=== PATIENT | female | born 1950 | race Caucasian/White ===

== ENCOUNTER → 2017-03-28 | Outpatient (CLI) | payer MEDICARE, OTHER ==
--- NOTE | 2017-04-01 09:52 | MM ---
Reason for exam: screening (asymptomatic). Last mammogram was performed 1 year ago. History: Patient is postmenopausal. Physical Findings: A clinical breast exam by your physician is recommended on an annual basis and results should be correlated with mammographic findings. MG 3D Screening Mammo W/Cad Bilateral CC and MLO view(s) were taken. Prior study comparison: March 27, 2016, bilateral MG 3d screening mammo w/cad. March 23, 2015, bilateral MG screening mammo w CAD. Asymmetric breast tissue in the right breast. ASSESSMENT: Benign, BI-RAD 2 RECOMMENDATION: Routine screening mammogram of both breasts in 1 year.
== END | disposition home or self-care (01) ==
LOC: RADMAMWWP 07:33
PROVIDERS: ATTEND Family Medicine
DX: Z12.31 Encounter for screening mammogram for malignant neoplasm of breast (principal)
CPT/HCPCS: 77063; G0202

== ENCOUNTER → 2017-04-04 | Outpatient (CLI) | payer MEDICARE, OTHER ==
--- NOTE | 2017-04-04 10:04 | US ---
EXAMINATION TYPE: US thyroid st tissue head/neck DATE OF EXAM: 04/04/2017 COMPARISON: 04/05/2016 and 03/23/2015. 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 follow up nodul es GLAND SIZE: Right Lobe: 4.3 x 2.3 x 2.3 cm Overall Parenchyma: heterogenous Left Lobe: 3.7 x 1.6 x 1.7 cm Overall Parenchyma: heterogeneous Isthmus Thickness: 0.4 cm NODULES RIGHT: # of nodules measured on right: 3 1. 0.6 X 0.6 x 0.5 cm hypoechoic solid nodule at the mid pole with well-defined margins. This nodu le is taller than wide and shows no intranodular vascularity. Prior size: 0.8 x 0.8 x 0.9 cm 2. 0.6 X 0.6 x 0.5 cm hypoechoic solid nodule at the lower pole with well-defined margins. This nod ule is taller than wide and shows no intranodular vascularity. Prior size: 0.6 x 0.6 x 0.7 cm 3. 0.9 X 0.9 x 0.7 cm hypoechoic solid nodule at the lower pole with irregular margins. This nodule is taller than wide and shows Peripheral vascularity. Prior size: 0.9 x 0.7 x 0.9 cm LEFT: # of nodules measured on left: 0 ISTHMUS: # of nodules measured in the isthmus: 0 Bilateral neck scanned, no evidence of lymphadenopathy. IMPRESSION: Multiple subcentimeter right-sided thyroid nodules are similar in size in comparison to exam of 2014 and likely benign. No new thyroid nodules.
== END | disposition home or self-care (01) ==
LOC: RADUSWWP 07:25
PROVIDERS: ATTEND Internal Medicine Endocrinology, Diabetes & Metabolism
DX: E04.2 Nontoxic multinodular goiter (principal)
CPT/HCPCS: 36415; 76536; 84439; 84443

== ENCOUNTER 2017-10-14 23:16 | Observation (INO) | payer MEDICARE, OTHER ==
--- NOTE | 2017-10-15 00:05 | XR ---
EXAMINATION TYPE: XR knee complete LT DATE OF EXAM: 10/14/2017 COMPARISON: NONE HISTORY: Knee pain TECHNIQUE: 3 views FINDINGS: There is narrowing of the medial joint space. There is spurring of femoral and tibial condy les. There is spurring at the patellofemoral joint. There is no sign of joint effusion. There is spur ring at the tibial tubercle. IMPRESSION: Moderate osteoarthritis. No fracture.
--- NOTE | 2017-10-15 01:11 | XR ---
EXAMINATION TYPE: XR knee complete RT DATE OF EXAM: 10/15/2017 COMPARISON: NONE HISTORY: Knee pain TECHNIQUE: 3 views FINDINGS: I see no fracture nor dislocation. There are no pathologic calcifications. There is a knee prosthesis. IMPRESSION: No fracture seen.
[2017-10-15] MEDS ORDERED: HYDROcodone/APAP 10-325MG 1 EACH TAB PO ONE (01:49)
--- NOTE | 2017-10-15 03:07 | ED ---
Fall HPI - General Chief Complaint: Fall Stated Complaint: Fall Time Seen by Provider: 10/14/17 23:18 Source: patient, EMS, RN notes reviewed, old records reviewed Mode of arrival: EMS - History of Present Illness Initial Comments: Patient is a 66-year-old female presents emergency Department with a chief complaint of left knee giving out and frequent falls. She is following approximately 10 times within the past few days. Patient states she has a right prosthetic knee. Patient states that this was performed by Dr. Parker. Patient denies any other symptoms associated with the fall. No head or neck injuries. Denies any chest pain shortness breath nausea or vomiting. - Related Data Home Medications Medication Instructions Recorded Confirmed Atorvastatin [Lipitor] 20 mg PO DAILY 10/14/17 10/14/17 Dulaglutide [Trulicity] 0.75 mg SQ WEEKLY 10/14/17 10/14/17 Lisinopril [Zestril] 2.5 mg PO DAILY 10/14/17 10/14/17 Allergies Allergy/AdvReac Type Severity Reaction Status Date / Time hydromorphone [From Dilaudid] Allergy Confusion Verified 10/14/17 23:24 Penicillins Allergy Nausea & Verified 10/14/17 23:24 Vomiting Review of Systems ROS Statement: Those systems with pertinent positive or pertinent negative responses have been documented in the HPI. ROS Other: All systems not noted in ROS Statement are negative. Past Medical History Past Medical History: Diabetes Mellitus, Hyperlipidemia, Hypertension History of Any Multi-Drug Resistant Organisms: None Reported Past Surgical History: Joint Replacement Additional Past Surgical History / Comment(s): right knee replacement Past Psychological History: No Psychological Hx Reported Smoking Status: Never smoker Past Alcohol Use History: None Reported Past Drug Use History: None Reported General Exam - General Exam Comments Initial Comments: 66-year-old female. Alert and oriented. No acute distress. Limitations: physical limitation General appearance: alert, in no apparent distress Head exam: Present: atraumatic, normocephalic, normal inspection Eye exam: Present: normal appearance, PERRL, EOMI. Absent: scleral icterus, conjunctival injection, periorbital swelling ENT exam: Present: normal exam, mucous membranes moist Neck exam: Present: normal inspection. Absent: tenderness, meningismus, lymphadenopathy Respiratory exam: Present: normal lung sounds bilaterally. Absent: respiratory distress, wheezes, rales, rhonchi, stridor Cardiovascular Exam: Present: regular rate, normal rhythm, normal heart sounds. Absent: systolic murmur, diastolic murmur, rubs, gallop, clicks GI/Abdominal exam: Present: soft, normal bowel sounds. Absent: distended, tenderness, guarding, rebound, rigid Extremities exam: Present: normal inspection, full ROM, normal capillary refill , other (Patient is some tenderness to left knee with range of motion of his normal pulses. Normal sensation distally.). Absent: tenderness, pedal edema, joint swelling, calf tenderness Back exam: Present: normal inspection Neurological exam: Present: alert, oriented X3, CN II-XII intact Course Vital Signs 10/14/17 10/15/17 10/15/17 23:19 02:00 03:24 Temperature 99.4 F 98.4 F Pulse Rate 98 89 97 Respiratory 18 20 18 Rate Blood Pressure 114/55 116/56 131/62 O2 Sat by Pulse 96 99 97 Oximetry Medical Decision Making - Medical Decision Making 66-year-old female presents with frequent falls, states that her left knee is giving out on her. I discussed with the knee x-rays were reviewed and normal. X-rays negative for any acute fractures. Patient's family said concerned they' re unable to get her home and scared of frequent falls and further injuries. He discussed this time we could admit the Patient for observation. They're quite adamant about her not returning home today. We'll check labs. - Lab Data Result diagrams: 10/15/17 03:10 10/15/17 03:10 Lab Results 10/15/17 10/15/17 Range/Units 03:10 03:10 WBC 10.0 (3.8-10.6) k/uL RBC 4.65 (3.80-5.40) m/uL Hgb 13.4 (11.4-16.0) gm/dL Hct 40.2 (34.0-46.0) % MCV 86.3 (80.0-100.0) fL MCH 28.7 (25.0-35.0) pg MCHC 33.3 (31.0-37.0) g/dL RDW 13.9 (11.5-15.5) % Plt Count 307 (150-450) k/uL Neutrophils % 72 % Lymphocytes % 22 % Monocytes % 4 % Eosinophils % 1 % Basophils % 0 % Neutrophils # 7.2 (1.3-7.7) k/uL Lymphocytes # 2.2 (1.0-4.8) k/uL Monocytes # 0.4 (0-1.0) k/uL Eosinophils # 0.1 (0-0.7) k/uL Basophils # 0.0 (0-0.2) k/uL Sodium 142 (137-145) mmol/L Potassium 4.5 (3.5-5.1) mmol/L Chloride 102 (98-107) mmol/L Carbon Dioxide 25 (22-30) mmol/L Anion Gap 15 mmol/L BUN 14 (7-17) mg/dL Creatinine 0.50 L (0.52-1.04) mg/dL Est GFR (CKD-EPI)AfAm >90 (>60 ml/min/1.73 sqM) Est GFR (CKD-EPI)NonAf >90 (>60 ml/min/1.73 sqM) Glucose 182 H (74-99) mg/dL Calcium 9.6 (8.4-10.2) mg/dL Total Bilirubin 0.4 (0.2-1.3) mg/dL AST 21 (14-36) U/L ALT 31 (9-52) U/L Alkaline Phosphatase 83 (38-126) U/L Total Protein 7.5 (6.3-8.2) g/dL Albumin 4.1 (3.5-5.0) g/dL - Radiology Data Radiology results: report reviewed Bilateral knee x-rays are completed. Notes of any fracture. Right knee has prosthesis. Disposition Clinical Impression: Frequent falls, Left knee pain Disposition: ADMITTED IP TO THIS [facility] Condition: Stable Is patient prescribed a controlled substance at d/c from ED?: No When asked, does pt state using other controlled substances?: No If prescribed controlled substance>3 days was MAPS reviewed?: No If opioid is for acute pain is fill amount 7 days or less?: No If Rx opioid, was Start Talking consent form obtained?: No Referrals: Abhi Baer MD [Primary Care Provider] - 1-2 days Time of Disposition: 03:32
[2017-10-15 03:19] LABS: Basophils % (A) 0 %; Eosinophils # (A) 0.1 k/uL (0-0.7); Eosinophils % (A) 1 %; HCT 40.2 % (34.0-46.0); HGB 13.4 gm/dL (11.4-16.0); Lymphocytes # (A) 2.2 k/uL (1.0-4.8); Lymphocytes % (A) 22 %; MCH 28.7 pg (25.0-35.0); MCHC 33.3 g/dL (31.0-37.0); MCV 86.3 fL (80.0-100.0); Mean Platelet Volume 6.4; Monocytes # (A) 0.4 k/uL (0-1.0); Monocytes % (A) 4 %; Neutrophils # (A) 7.2 k/uL (1.3-7.7); Neutrophils % (A) 72 %; Platelet Count 307 k/uL (150-450); RBC 4.65 m/uL (3.80-5.40); RDW 13.9 % (11.5-15.5)
[2017-10-15] MEDS: SODIUM CHLORIDE 0.9% 1,000 ML IV SCH ×2 (03:24→15:24)
[2017-10-15 03:28] LABS: ALT 31 U/L (9-52); AST 21 U/L (14-36); Albumin 4.1 g/dL (3.5-5.0); Alkaline Phosphatase 83 U/L (38-126); Anion Gap 15 mmol/L; Blood Urea Nitrogen 14 mg/dL (7-17); Calcium 9.6 mg/dL (8.4-10.2); Carbon Dioxide 25 mmol/L (22-30); Chloride 102 mmol/L (98-107); Glucose 182 mg/dL (74-99); Potassium 4.5 mmol/L (3.5-5.1); Sodium 142 mmol/L (137-145); Total Bilirubin 0.4 mg/dL (0.2-1.3); Total Protein 7.5 g/dL (6.3-8.2)
[2017-10-15] MEDS ORDERED: NALOXONE 0.4 MG/ML 1 ML VIAL IV PRN (03:32)
[2017-10-15] MEDS ORDERED: IBUPROFEN 400 MG TAB PO PRN (03:32)
[2017-10-15] MEDS ORDERED: oxyCODONE-APAP 5-325MG 1 EACH TAB PO PRN (03:32)
[2017-10-15] MEDS ORDERED: ACETAMINOPHEN TAB 325 MG TAB PO PRN (03:32)
[2017-10-15] MEDS ORDERED: ONDANSETRON 4 MG/2 ML VIAL IVP PRN (03:32)
[2017-10-15] MEDS ORDERED: Acetaminophen-Codeine 300-30mg TAB PO PRN (03:32)
[2017-10-15 03:52] LABS: Appearance,Urine Cloudy (Clear); Bacteria,Urine Many /hpf; Bilirubin,Urine Negative (Negative); Blood,Urine Small (Negative); Color,Urine Yellow; Glucose,Urine (UA) Negative (Negative); Ketones,Urine Negative (Negative); Leukocyte Esterase,Urine Large (Negative); Mucus,Urine Rare /hpf; Nitrite,Urine Positive (Negative); PH, Urine 5.5 (5.0-8.0); Protein,Urine Negative (Negative); RBC,Urine 32 /hpf (0-5); Specific Gravity,Urine 1.015 (1.001-1.035); Squamous Epithelial Cell,Urine 2 /hpf (0-4); Urobilinogen,Urine <2.0 mg/dL (<2.0); WBC,Urine 20 /hpf (0-5)
[2017-10-15] MEDS ORDERED: LEVOFLOXACIN 750MG-D5W PMX 750 MG in DEXTROSE/WATER 1 150ML.BAG IVPB STA (04:18)
[2017-10-15 07:28] LABS: Glucose,Whole Blood 167 mg/dL (75-99)
[2017-10-15] MEDS: LISINOPRIL 2.5 MG TAB PO SCH (09:12)
[2017-10-15] MEDS: PANTOPRAZOLE 40 MG/10 ML VIAL IV SCH (09:12)
[2017-10-15] MEDS: ATORVASTATIN 20 MG TAB PO SCH (09:12)
[2017-10-15 11:40] LABS: Glucose,Whole Blood 150 mg/dL (75-99)
--- NOTE | 2017-10-15 11:59 | P.CNOR ---
History of Present Illness - [facility] Consult date: 10/15/17 Consult reason: joint pain History of present illness: Patient is a 66-year-old female who was admitted to [facility] yesterday. Patient reported to the hospital due to frequent falls involving the left knee. According to the patient's family, patient is fallen 10 times in the last few days. Patient does live at home with her . Patient's has had many strokes and requires a lot of assistance. Patient utilizes a walker usually for ambulation, she hasn't fallen with this. Patient is a history of a previous right total knee arthroplasty done back in 2006 or 2007, she ended up having a revision done in 2011. Patient has had significant adhesions and stiffness with that right knee. Dr. Parker was the operating surgeon. She has not seen Dr. Keith Estes in 2011. With the recent falls, she's noted the left leg giving out, which she contributes more to the falls. She's had no acute trauma to the right knee at this time. She denies any bilateral upper extremity pain, new onset cervical, thoracic or lumbar pain. She denies any paresthesias of the bilateral lower extremities. 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 History of Any Multi-Drug Resistant Organisms: None Reported Past Surgical History: Bladder Surgery, Cholecystectomy, Hysterectomy, Joint Replacement, Orthopedic Surgery, Tubal Ligation Additional Past Surgical History / Comment(s): R knee arthroscopy, R knee manipulation, total right knee replacement x 2, bilateral carpal tunnel releases , colonoscopy, bladder suspension, I&D R lower abdomin abscess. Past Anesthesia/Blood Transfusion Reactions: No Reported Reaction Smoking Status: Never smoker - Past Family History Mother Family Medical History: No Reported History Father Family Medical History: Cancer, Diabetes Mellitus Additional Family Medical History / Comment(s): Father had thyroid cancer. Medications and Allergies Home Medications Medication Instructions Recorded Confirmed Type Atorvastatin [Lipitor] 20 mg PO HS 10/14/17 10/15/17 History Lisinopril [Zestril] 2.5 mg PO HS 10/14/17 10/15/17 History Dulaglutide [Trulicity] 1.5 mg SQ WE 10/15/17 10/15/17 History Insulin Degludec [Tresiba 40 unit SQ HS 10/15/17 10/15/17 History Flextouch U-200] Allergies Allergy/AdvReac Type Severity Reaction Status Date / Time hydromorphone [From Dilaudid] Allergy Confusion Verified 10/15/17 09:00 Penicillins Allergy Nausea & Verified 10/15/17 09:00 Vomiting Physical Examination Right lower extremity: Obvious previous incision over the anterior aspect of the knee, no open lesions or sores No obvious erythema or soft tissue swelling present Range of motion is from -15 to about 20, this is passively. Actively the motion is worse Calf is soft, no tenderness with palpation Plantar flexion, dorsiflexion, EHL, FHL are intact Sensory exam to light touch throughout the extremities intact, dorsal pedis pulses 2+ Logroll maneuver the hip reproduces no discomfort Left lower extremity: No obvious open lesions or sores present, no significant erythema or soft tissue swelling Active range of motion is from about -5 to 60 of flexion, passively I can flex to about 90 Calf is soft, no tenderness with palpation Plantar flexion, dorsiflexion, EHL, FHL are intact Sensory exam to light touch throughout the extremities intact, dorsal pedis pulses 2+ Logroll maneuver of the hip reproduces no discomfort Results - Labs Labs: Abnormal Lab Results - Last 24 Hours (Table) 10/15/17 10/15/17 10/15/17 Range/Units 03:10 03:34 07:24 Creatinine 0.50 L (0.52-1.04) mg/dL Glucose 182 H (74-99) mg/dL POC Glucose (mg/dL) 167 H (75-99) mg/dL Urine Appearance Cloudy H (Clear) Urine Blood Small H (Negative) Urine Nitrite Positive H (Negative) Ur Leukocyte Esterase Large H (Negative) Urine RBC 32 H (0-5) /hpf Urine WBC 20 H (0-5) /hpf Urine Bacteria Many H (None) /hpf Urine Mucus Rare H (None) /hpf 05/29/18 Range/Units 11:38 Creatinine (0.52-1.04) mg/dL Glucose (74-99) mg/dL POC Glucose (mg/dL) 150 H (75-99) mg/dL Urine Appearance (Clear) Urine Blood (Negative) Urine Nitrite (Negative) Ur Leukocyte Esterase (Negative) Urine RBC (0-5) /hpf Urine WBC (0-5) /hpf Urine Bacteria (None) /hpf Urine Mucus (None) /hpf Microbiology - Last 24 Hours (Table) 10/15/17 03:34 Urine Culture - Preliminary Urine,Voided H & H 10/15/17 Range/Units 03:10 Hgb 13.4 (11.4-16.0) gm/dL Hct 40.2 (34.0-46.0) % Result Diagrams: 10/15/17 03:10 10/15/17 03:10 - Diagnostic results Knee x-ray: report reviewed, image reviewed Assessment and Plan Plan: Imaging: Multiple views of the bilateral knees were obtained. Images of the right knee reveal a stable revision right total knee arthroplasty. No obvious lucencies or other signs of loosening present. Images of the left knee demonstrate severe osteoarthritis, mainly with joint space narrowing of the medial aspect, also evidence of osteophytes and subchondral sclerosis. No acute fractures or dislocations present Assessment: Left knee pain Severe left knee osteoarthritis Stable revision right total knee arthroplasty with significant stiffness History of recent falls Other medical comorbidities Plan: I was able to discuss the case including physical exam findings and imaging studies with my attending Dr. Parker. We recommend no surgical intervention at this time. With the poor results after the right knee replacement, I do not think a left knee replacement would be of any benefit at this time. Patient's general activity level has diminished, and there is associated weakness of the bilateral extremities and upper extremities. Recommend PT/OT evaluation. Patient would benefit from likely stay at rehab to strengthen the bilateral upper extremities in the bilateral lower extremities Consider possible permanent residence in an assisted living home patient's symptoms don't improve Medical recommendations We will be available for any further questions regarding this patient, patient may follow-up in the outpatient setting for any further treatment options and discussion Time with Patient: Less than 30
[2017-10-15 17:07] LABS: Glucose,Whole Blood 170 mg/dL (75-99)
[2017-10-15 20:04] LABS: Glucose,Whole Blood 157 mg/dL (75-99)
[2017-10-15] MEDS: TRESIBA SQ SCH (20:08)
--- NOTE | 2017-10-15 22:01 | P.HPIM ---
History of Present Illness H&P Date: 10/15/17 Chief Complaint: Left knee pain with multiple falls. This is a continuing progress note/history and physical on a 66-year-old female essentially admitted for multiple falls. She hasast several weeks. She has had right knee replacement in the past and states that her left knee has been giving away. Orthopedics has been counseled that as has physical therapy. No numbness or tingling. No presyncope or syncopal episodes actually stated. I suspect this is more functional in nature. Review of Systems Constitutional: Denies chills, Denies fever Eyes: denies blurred vision, denies pain Ears, nose, mouth and throat: Denies headache, Denies sore throat Cardiovascular: Denies chest pain Respiratory: Denies cough Gastrointestinal: Denies abdominal pain, Denies diarrhea, Denies nausea, Denies vomiting Musculoskeletal: left: knee pain, knee stiffness Integumentary: Denies pruritus, Denies rash Past Medical History Past Medical History: Diabetes Mellitus, Hyperlipidemia, Hypertension, Osteoarthritis (OA), Skin Disorder, Vascular Disorder Additional Past Medical History / Comment(s): Diabetes-Trulicity SQ weekly, numbness/tingling bilateral legs, bilateral legs vascular disease, peripheral edema bilateral legs-especially R side, arthritis L knee, occassional back pain , 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 History of Any Multi-Drug Resistant Organisms: None Reported Past Surgical History: Bladder Surgery, Cholecystectomy, Hysterectomy, Joint Replacement, Orthopedic Surgery, Tubal Ligation Additional Past Surgical History / Comment(s): R knee arthroscopy, R knee manipulation, total right knee replacement x 2, bilateral carpal tunnel releases , colonoscopy, bladder suspension, I&D R lower abdomin abscess. Past Anesthesia/Blood Transfusion Reactions: No Reported Reaction Smoking Status: Never smoker - Past Family History Mother Family Medical History: No Reported History Father Family Medical History: Cancer, Diabetes Mellitus Additional Family Medical History / Comment(s): Father had thyroid cancer. Medications and Allergies Home Medications Medication Instructions Recorded Confirmed Type Atorvastatin [Lipitor] 20 mg PO HS 10/14/17 10/15/17 History Lisinopril [Zestril] 2.5 mg PO HS 10/14/17 10/15/17 History Dulaglutide [Trulicity] 1.5 mg SQ WE 10/15/17 10/15/17 History Insulin Degludec [Tresiba 40 unit SQ HS 10/15/17 10/15/17 History Flextouch U-200] Allergies Allergy/AdvReac Type Severity Reaction Status Date / Time hydromorphone [From Dilaudid] Allergy Confusion Verified 10/15/17 09:00 Penicillins Allergy Nausea & Verified 10/15/17 09:00 Vomiting Physical Exam Vitals: Vital Signs Temp Pulse Pulse Resp BP BP Pulse Ox 10/15/17 16:00 16 10/15/17 15:28 97.5 F L 85 16 144/70 96 10/15/17 09:52 16 10/15/17 06:40 87 18 139/60 10/15/17 05:35 86 18 138/67 97 10/15/17 04:42 91 18 120/63 98 10/15/17 03:24 98.4 F 97 18 131/62 97 10/15/17 02:00 89 20 116/56 99 10/14/17 23:19 99.4 F 98 18 114/55 96 Intake and Output 10/15/17 10/15/17 10/15/17 06:59 14:59 22:59 Intake Total 850 Output Total 1300 Balance -450 Intake: Intake, IV Titration 850 Amount Levofloxacin 750Mg-D5w 150 Pmx 750 mg In Dextrose/ Water 1 150ml.bag @ 100 mls/hr IVPB ONCE STA Rx#: [id number] Sodium Chloride 0.9% 1, 700 000 ml @ 100 mls/hr IV . Q10H [facility] Rx#:[id number] Output: Urine 1300 Other: Voiding Method Bedpan Bedpan Weight 81.647 kg - Constitutional General appearance: no acute distress - EENT Eyes: EOMI - Neck Neck: no lymphadenopathy - Respiratory Respiratory: bilateral: CTA - Cardiovascular Rhythm: regular Heart sounds: normal: S1, S2 Abnormal Heart Sounds: no S3 Gallop - Gastrointestinal General gastrointestinal: soft, no tenderness - Integumentary Integumentary: no cellulitis - Neurologic No significant focal deficits noted. Neurologic: CNII-XII intact - Musculoskeletal Musculoskeletal: no gait normal - Psychiatric Psychiatric: A&O x's 3, appropriate affect, intact judgment & insight Results CBC & Chem 7: 10/15/17 03:10 10/15/17 03:10 Labs: Abnormal Lab Results - Last 24 Hours (Table) 10/15/17 10/15/17 10/15/17 Range/Units 03:10 03:34 07:24 Creatinine 0.50 L (0.52-1.04) mg/dL Glucose 182 H (74-99) mg/dL POC Glucose (mg/dL) 167 H (75-99) mg/dL Urine Appearance Cloudy H (Clear) Urine Blood Small H (Negative) Urine Nitrite Positive H (Negative) Ur Leukocyte Esterase Large H (Negative) Urine RBC 32 H (0-5) /hpf Urine WBC 20 H (0-5) /hpf Urine Bacteria Many H (None) /hpf Urine Mucus Rare H (None) /hpf 10/15/17 10/15/17 10/15/17 Range/Units 11:38 17:06 20:01 Creatinine (0.52-1.04) mg/dL Glucose (74-99) mg/dL POC Glucose (mg/dL) 150 H 170 H 157 H (75-99) mg/dL Urine Appearance (Clear) Urine Blood (Negative) Urine Nitrite (Negative) Ur Leukocyte Esterase (Negative) Urine RBC (0-5) /hpf Urine WBC (0-5) /hpf Urine Bacteria (None) /hpf Urine Mucus (None) /hpf Microbiology - Last 24 Hours (Table) 10/15/17 03:34 Urine Culture - Preliminary Urine,Voided Thrombosis Risk Factor Assmnt - Choose All That Apply Any of the Below Risk Factors Present?: Yes Each Factor Represents 1 point: Obesity (BMI >25), Swollen legs (current) Other Risk Factors: Yes Each Risk Factor Represents 2 Points: Age 61-74 years Other congenital or acquired thrombophilia - If yes, enter type in comment: No Thrombosis Risk Factor Assessment Total Risk Factor Score: 4 Thrombosis Risk Factor Assessment Level: Moderate Risk Assessment and Plan (1) Primary osteoarthritis of left knee Current Visit: Yes Status: Acute Code(s): M17.12 - UNILATERAL PRIMARY OSTEOARTHRITIS, LEFT KNEE SNOMED Code(s): 146751127436052 (2) Diabetes Current Visit: Yes Status: Acute Code(s): E11.9 - TYPE 2 DIABETES MELLITUS WITHOUT COMPLICATIONS SNOMED Code(s): 91302692 (3) Hypertension Current Visit: Yes Status: Acute Code(s): I10 - ESSENTIAL (PRIMARY) HYPERTENSION SNOMED Code(s): 16105573 (4) Hyperlipidemia Current Visit: Yes Status: Acute Code(s): E78.5 - HYPERLIPIDEMIA, UNSPECIFIED SNOMED Code(s): 53812662 (5) Frequent falls Current Visit: Yes Status: Acute Code(s): R29.6 - REPEATED FALLS SNOMED Code(s): 189300587 Plan: We will ask orthopedics to visit with therapy to evaluate the patient. Question placement element with rehab issue. Otherwise, consider physical medicine rehab consultation. Reconcile medications. Treat for UTI. We will continue to follow obviously with this hospitalization. Time with Patient: Greater than 30
[2017-10-16] MEDS: SODIUM CHLORIDE 0.9% 1,000 ML IV SCH ×3 (00:47→21:03)
[2017-10-16] MEDS: LEVOFLOXACIN 750 MG TAB PO SCH (04:52)
[2017-10-16 07:00] LABS: Glucose,Whole Blood 163 mg/dL (75-99)
[2017-10-16] MEDS: LISINOPRIL 2.5 MG TAB PO SCH (07:23)
[2017-10-16] MEDS: ATORVASTATIN 20 MG TAB PO SCH (07:23)
[2017-10-16] MEDS: PANTOPRAZOLE 40 MG/10 ML VIAL IV SCH (07:23)
[2017-10-16] MEDS ORDERED: NON-FORMULARY DRUG (Dulaglutide [Trulicity] 1.5 MG) SQ SCH (09:00)
--- NOTE | 2017-10-16 10:14 | P.CONS ---
History of Present Illness - Chief Complaint Walking difficulty, frequent falls - History of Present Illness I had the opportunity to see patient for inpatient consultation with regard to walking difficulty and frequent falls. She was admitted to [facility] October 15 with same history. Apparently described pain in right knee although with me she describes pain in right foot or ankle. Seen by Dr. Quiroz who reviewed x-rays of the right knee and left knee. Moderate arthritic changes noted left knee only. Describes previous right knee replacement. PT reports maximal assistance for functional mobility. Previous functional history as elicited from patient: 66-year-old right-handed white female who is lives and 2 floor home with . Both are retired. does the cooking, they share the laundry. Patient independent with driving, standing shower and gait with 4 wheeled walker. Doesn 't smoke or drink and never did. PMD Dr. Baer. Family history father with diabetes. Review of Systems Review of systems: ENT: Denies sneezes or discharge. Eyes: Denies discharge or photophobia. Cardiac: Denies chest pain or palpitation. Pulmonary: Denies cough or shortness of breath. Breast: Denies discharge or lumps. Gastrointestinal: Denies nausea, emesis, constipation, diarrhea. Genitourinary: Denies discharge or frequency. Musculoskeletal: Describes discomfort and right foot or ankle only. Neurologic: Denies motor or sensory change. Does describe frequent falls which she attributes to her diabetes. Endocrine: Denies shakes or sweats. Oncology: Denies cancers. Dermatologic: Denies rash, itching, pruritus. ALLERGY/immunology: Denies sneezes, rashes. 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 History of Any Multi-Drug Resistant Organisms: None Reported Past Surgical History: Bladder Surgery, Cholecystectomy, Hysterectomy, Joint Replacement, Orthopedic Surgery, Tubal Ligation Additional Past Surgical History / Comment(s): R knee arthroscopy, R knee manipulation, total right knee replacement x 2, bilateral carpal tunnel releases , colonoscopy, bladder suspension, I&D R lower abdomin abscess. Past Anesthesia/Blood Transfusion Reactions: No Reported Reaction Smoking Status: Never smoker - Past Family History Mother Family Medical History: No Reported History Father Family Medical History: Cancer, Diabetes Mellitus Additional Family Medical History / Comment(s): Father had thyroid cancer. Medications and Allergies Home Medications Medication Instructions Recorded Confirmed Type Atorvastatin [Lipitor] 20 mg PO HS 10/14/17 10/15/17 History Lisinopril [Zestril] 2.5 mg PO HS 10/14/17 10/15/17 History Dulaglutide [Trulicity] 1.5 mg SQ WE 10/15/17 10/15/17 History Insulin Degludec [Tresiba 40 unit SQ HS 10/15/17 10/15/17 History Flextouch U-200] Allergies Allergy/AdvReac Type Severity Reaction Status Date / Time hydromorphone [From Dilaudid] Allergy Confusion Verified 10/15/17 09:00 Penicillins Allergy Nausea & Verified 10/15/17 09:00 Vomiting Physical Exam Vitals: Vital Signs Temp Pulse Resp BP Pulse Ox 10/16/17 05:15 98.1 F 81 16 122/59 94 L 10/15/17 21:20 97.6 F 75 16 114/54 94 L 10/15/17 16:00 16 10/15/17 15:28 97.5 F L 85 16 144/70 96 Intake and Output 10/15/17 10/16/17 10/16/17 22:59 06:59 14:59 Intake Total 350 800 Output Total 800 Balance 350 0 Intake: Intake, IV Titration 350 800 Amount Sodium Chloride 0.9% 1, 350 800 000 ml @ 100 mls/hr IV . Q10H [facility] Rx#:[id number] Output: Urine 800 Other: Voiding Method Bedpan Skin: Good color, texture, turgor. General: Overweight build and comfortable appearance. Head: Normocephalic, atraumatic. Eyes: Symmetric. Pupils equal round. Ears: Symmetric. Hearing within normal limits. Mouth: Clear. Neck: Supple. Carotid without bruit. Cardiac: Regular rate and rhythm. Lungs: Clear anteriorly and posteriorly. Abdomen: Soft active nontender. Overweight. Extremities: Normal tone. Neurological: Mental status: Alert, cooperative, pleasant. Cranial nerves: Symmetric facial tone and trapezius. Motor: Can actively elevates all 4 limbs. Sensation: Intact throughout. DTRs: Symmetric and equal throughout. Mobility: Moderate assistance for bed mobility and sitting. Results CBC & Chem 7: 10/15/17 03:10 10/15/17 03:10 Labs: Abnormal Lab Results - Last 24 Hours (Table) 10/15/17 10/15/17 10/15/17 Range/Units 11:38 17:06 20:01 POC Glucose (mg/dL) 150 H 170 H 157 H (75-99) mg/dL 10/16/17 Range/Units 06:54 POC Glucose (mg/dL) 163 H (75-99) mg/dL Microbiology - Last 24 Hours (Table) 10/15/17 04:29 Blood Culture - Preliminary Blood No Growth after 24 hours 10/15/17 03:34 Urine Culture - Preliminary Urine,Voided Assessment and Plan (1) Frequent falls Current Visit: Yes Status: Acute Code(s): R29.6 - REPEATED FALLS SNOMED Code(s): 560677796 Plan: Impression: 1. Walking difficulty with frequent falls. 2. Polyarthritis involving multiple joints including knees and history of right knee replacement. 3. Hypertension. 4. Dyslipidemia. 5. Diabetes associated polyneuropathy. 6. Peripheral vascular disease. Comments and plan: PT ongoing in a very added OT. Discussed possible need for extended therapy such as rehab unit. Patient seems agreeable if necessary.
[2017-10-16 11:06] LABS: Glucose,Whole Blood 206 mg/dL (75-99)
[2017-10-16 17:12] LABS: Glucose,Whole Blood 155 mg/dL (75-99)
[2017-10-16 20:23] LABS: Glucose,Whole Blood 164 mg/dL (75-99)
[2017-10-16] MEDS: TRESIBA SQ SCH (21:03)
[2017-10-17] MEDS ORDERED: LEVOFLOXACIN 750 MG TAB ONE (05:00)
[2017-10-17] MEDS: LEVOFLOXACIN 750 MG TAB PO SCH (05:57)
[2017-10-17] MEDS: SODIUM CHLORIDE 0.9% 1,000 ML IV SCH ×2 (06:30→15:53)
[2017-10-17 07:22] LABS: Glucose,Whole Blood 135 mg/dL (75-99)
--- NOTE | 2017-10-17 08:25 | P.DS ---
Providers Date of admission: 10/15/17 03:32 Attending physician: Abhi Baer Consults: 10/15/17 07:26 Consult Physician Routine Consulting Provider: Darrin Parker Consult Reason/Comments: Bilateral knee pain, frequent falls Do you want consulting provider notified?: Yes 10/16/17 08:45 Consult Physician Urgent Consulting Provider: Arnav Marr Consult Reason/Comments: [facility] Do you want consulting provider notified?: Yes Primary care physician: Abhi Baer - Discharge Diagnosis(es) (1) Primary osteoarthritis of left knee Current Visit: Yes Status: Acute (2) Diabetes Current Visit: Yes Status: Acute (3) Hypertension Current Visit: Yes Status: Acute (4) Hyperlipidemia Current Visit: Yes Status: Acute (5) Frequent falls Current Visit: Yes Status: Acute Hospital Course: This is a discharge summary 66-year-old white female essentially admitted for multiple falls and instability of the knee. She's had knee replacement on the right but states the left knee has been giving out inappropriately. The patient states that she is agreeable to transfer to rehabilitation. Dr. Perez was consulted as supposedly agreed to take the patient to inpatient rehab. The patient will be transferred one bed available. Reconcile home medications and we will continue to follow at [facility]. Patient Condition at Discharge: Stable Plan - Discharge Summary Discharge Rx Participant: No New Discharge Prescriptions: New Levofloxacin [Levaquin] 750 mg PO Q24H #5 tab oxyCODONE-APAP 5-325MG [Percocet 5-325 mg] 1 each PO Q4HR PRN #60 tab PRN Reason: Severe Pain Pantoprazole [Protonix] 40 mg PO AC-BRKFST #30 tablet. Continue Lisinopril [Zestril] 2.5 mg PO HS Atorvastatin [Lipitor] 20 mg PO HS Dulaglutide [Trulicity] 1.5 mg SQ WE Insulin Degludec [Tresiba Flextouch U-200] 40 unit SQ HS Discharge Medication List Atorvastatin [Lipitor] 20 mg PO HS 10/14/17 [History] Lisinopril [Zestril] 2.5 mg PO HS 10/14/17 [History] Dulaglutide [Trulicity] 1.5 mg SQ WE 10/15/17 [History] Insulin Degludec [Tresiba Flextouch U-200] 40 unit SQ HS 10/15/17 [History] Levofloxacin [Levaquin] 750 mg PO Q24H #5 tab 10/17/17 [Rx] Pantoprazole [Protonix] 40 mg PO AC-BRKFST #30 tablet.dr 10/17/17 [Rx] oxyCODONE-APAP 5-325MG [Percocet 5-325 mg] 1 each PO Q4HR PRN #60 tab 10/17/17 [ Rx] Follow up Appointment(s)/Referral(s): Abhi Baer MD [Primary Care Provider] - 1-2 days Discharge Disposition: TRANSFER TO SNF/ECF
[2017-10-17] MEDS: PANTOPRAZOLE 40 MG TABLET PO SCH (08:41)
[2017-10-17] MEDS: LISINOPRIL 2.5 MG TAB PO SCH (08:41)
[2017-10-17] MEDS: ATORVASTATIN 20 MG TAB PO SCH (08:41)
[2017-10-17 10:56] LABS: Glucose,Whole Blood 146 mg/dL (75-99)
[2017-10-17 16:47] LABS: Glucose,Whole Blood 181 mg/dL (75-99)
[2017-10-17] MEDS: KETOROLAC 30 MG/ML 1 ML VIAL IVP PRN (17:48)
[2017-10-17] MEDS: TRESIBA SQ SCH (20:24)
[2017-10-17 20:25] LABS: Glucose,Whole Blood 153 mg/dL (75-99)
[2017-10-17 21:53] VITALS: RESP 16
[2017-10-18] MEDS: SODIUM CHLORIDE 0.9% 1,000 ML IV SCH ×2 (01:38→08:11)
[2017-10-18] MEDS: LEVOFLOXACIN 750 MG TAB PO SCH (04:38)
[2017-10-18] MEDS: KETOROLAC 30 MG/ML 1 ML VIAL IVP PRN ×2 (04:44→13:59)
[2017-10-18 05:59] VITALS: BP 138/75; PULSE 89; TEMP 98.2
[2017-10-18 07:03] LABS: Glucose,Whole Blood 148 mg/dL (75-99)
[2017-10-18] MEDS: PANTOPRAZOLE 40 MG TABLET PO SCH (08:06)
[2017-10-18] MEDS: ATORVASTATIN 20 MG TAB PO SCH (08:06)
[2017-10-18] MEDS: LISINOPRIL 2.5 MG TAB PO SCH (08:06)
--- NOTE | 2017-10-18 08:18 | P.PN ---
Objective - Vital Signs Vital signs: Vital Signs Temp 98.2 F 10/18/17 05:00 Pulse 89 10/18/17 05:00 Resp 16 10/18/17 05:00 BP 138/75 10/18/17 05:00 Pulse Ox 97 10/18/17 05:00 Intake & Output 10/17/17 10/18/17 10/18/17 18:59 06:59 18:59 Intake Total 240 1100 Output Total 2700 700 Balance -2460 400 Weight 81.647 kg Intake: Intake, IV Titration 1100 Amount Sodium Chloride 0.9% 1, 1100 000 ml @ 100 mls/hr IV . Q10H [facility] Rx#:[id number] Oral 240 Output: Urine 2700 700 Other: Voiding Method Bedpan - Labs CBC & Chem 7: 10/15/17 03:10 10/15/17 03:10 Labs: Abnormal Lab Results - Last 24 Hours (Table) 10/17/17 10/17/17 10/17/17 Range/Units 10:54 16:46 20:14 POC Glucose (mg/dL) 146 H 181 H 153 H (75-99) mg/dL 10/18/17 Range/Units 07:01 POC Glucose (mg/dL) 148 H (75-99) mg/dL Microbiology - Last 24 Hours (Table) 10/15/17 04:29 Blood Culture - Preliminary Blood No Growth after 72 hours 10/15/17 03:34 Urine Culture - Final Urine,Voided Escherichia coli Assessment and Plan (1) Primary osteoarthritis of left knee Current Visit: Yes Status: Acute Code(s): M17.12 - UNILATERAL PRIMARY OSTEOARTHRITIS, LEFT KNEE SNOMED Code(s): 811569114718833 (2) Diabetes Current Visit: Yes Status: Acute Code(s): E11.9 - TYPE 2 DIABETES MELLITUS WITHOUT COMPLICATIONS SNOMED Code(s): 05420999 (3) Hypertension Current Visit: Yes Status: Acute Code(s): I10 - ESSENTIAL (PRIMARY) HYPERTENSION SNOMED Code(s): 67109880 (4) Hyperlipidemia Current Visit: Yes Status: Acute Code(s): E78.5 - HYPERLIPIDEMIA, UNSPECIFIED SNOMED Code(s): 47056723 (5) Frequent falls Current Visit: Yes Status: Acute Code(s): R29.6 - REPEATED FALLS SNOMED Code(s): 220197738 Plan: Due to bed availability, the patient was discharged later today. Refer to discharge summary from 10/17/2017 Time with Patient: Less than 30
[2017-10-18 11:34] LABS: Glucose,Whole Blood 144 mg/dL (75-99)
== END 2017-10-18 14:10 ==
LOC: EC 23:16 → 5MS5E 10-15 03:32
PROVIDERS: ADMIT Family Medicine; ATTEND Family Medicine
DX: M17.12 Unilateral primary osteoarthritis, left knee (principal); R29.6 Repeated falls; E11.42 Type 2 diabetes mellitus with diabetic polyneuropathy; E11.51 Type 2 diabetes mellitus with diabetic peripheral angiopathy without gangrene; Z96.651 Presence of right artificial knee joint; E78.5 Hyperlipidemia, unspecified; I10 Essential (primary) hypertension; N39.0 Urinary tract infection, site not specified; R20.0 Anesthesia of skin; R20.2 Paresthesia of skin; M79.89 Other specified soft tissue disorders; R60.0 Localized edema; M25.369 Other instability, unspecified knee; M79.671 Pain in right foot; L92.0 Granuloma annulare; J30.9 Allergic rhinitis, unspecified; E66.9 Obesity, unspecified; M25.762 Osteophyte, left knee; Z68.31 Body mass index [BMI] 31.0-31.9, adult; Z87.09 Personal history of other diseases of the respiratory system; Z88.5 Allergy status to narcotic agent; Z88.0 Allergy status to penicillin; Z86.19 Personal history of other infectious and parasitic diseases; Z90.49 Acquired absence of other specified parts of digestive tract; Z80.8 Family history of malignant neoplasm of other organs or systems; Z79.899 Other long term (current) drug therapy; Z79.4 Long term (current) use of insulin
CPT/HCPCS: 96365 ×2; 96366 ×3; 96361 ×2; 99285; 96376 ×2; 96375 ×2; 36415; 97116; 97530; 97162; 97535 ×2; 97166; 80053; 85025; 81001; 87040; 87086; 87077; 87186; 73562 ×2; G0378 ×4; J1885 ×2; J1956; C9113 ×2

== ENCOUNTER 2017-11-20 12:50 | Inpatient (IN) | payer MEDICARE, OTHER ==
[2017-11-20] MEDS ORDERED: SODIUM CHLORIDE 0.9% 1,000 ML IV STA (13:16)
[2017-11-20 13:38] LABS: Basophils % (A) 0 %; Eosinophils # (A) 0.1 k/uL (0-0.7); Eosinophils % (A) 1 %; HCT 40.1 % (34.0-46.0); HGB 13.5 gm/dL (11.4-16.0); Lymphocytes # (A) 1.4 k/uL (1.0-4.8); Lymphocytes % (A) 14 %; MCH 28.7 pg (25.0-35.0); MCHC 33.6 g/dL (31.0-37.0); MCV 85.4 fL (80.0-100.0); Mean Platelet Volume 6.2; Monocytes # (A) 0.4 k/uL (0-1.0); Monocytes % (A) 4 %; Neutrophils # (A) 8.1 k/uL (1.3-7.7); Neutrophils % (A) 81 %; Platelet Count 241 k/uL (150-450); RBC 4.69 m/uL (3.80-5.40); RDW 13.1 % (11.5-15.5)
[2017-11-20 13:46] LABS: ALT 39 U/L (9-52); AST 19 U/L (14-36); Alkaline Phosphatase 57 U/L (38-126); Anion Gap 10 mmol/L; Blood Urea Nitrogen 22 mg/dL (7-17); Calcium 8.5 mg/dL (8.4-10.2); Carbon Dioxide 32 mmol/L (22-30); Chloride 99 mmol/L (98-107); Glucose 114 mg/dL (74-99); Sodium 141 mmol/L (137-145); Total Bilirubin 0.4 mg/dL (0.2-1.3); Total Protein 5.4 g/dL (6.3-8.2)
[2017-11-20 13:57] LABS: Creatine Kinase <20 U/L (30-135)
[2017-11-20 14:01] LABS: Partial Thromboplastin Time 18.6 sec (22.0-30.0)
[2017-11-20 14:10] LABS: Creatine Kinase MB <0.2 ng/mL (0.0-2.4); Troponin I <0.012 ng/mL (0.000-0.034)
--- NOTE | 2017-11-20 14:10 | CT ---
EXAMINATION TYPE: CT brain wo con for TPA DATE OF EXAM: 11/20/2017 COMPARISON: Prior CT dated 2008. HISTORY: Lt sided weakness CT DLP: 1090.4 mGycm Automated exposure control for dose reduction was used. Helical imaging through the brain. FINDINGS: White matter low-attenuation is present in the deep white matter greater on the right than on the lef t, interval finding. There is no mass effect. No hemorrhage or hydrocephalus. Calvarium is intact. Pa ranasal sinuses IMPRESSION: FINDINGS SUGGEST PREVIOUS CEREBROVASCULAR ACCIDENT, CHRONIC SMALL VESSEL ISCHEMIC CHANGE. NO ACUTE AB NORMALITY SUSPECTED.
--- NOTE | 2017-11-20 14:23 | XR ---
EXAMINATION TYPE: XR chest 2V DATE OF EXAM: 11/20/2017 COMPARISON: Prior chest 04/09/2012 HISTORY: Altered mental status TECHNIQUE: Frontal and lateral views of the chest are obtained. FINDINGS: The heart is enlarged. Interstitium is increased. Perihilar increased density is noted. No pneumothorax or pleural effusion. There are overlying cardiac leads. IMPRESSION: Correlate to exclude pulmonary venous hypertension and interstitial edema. Exam may be e xpiratory and is rotated, follow-up as indicated.
--- NOTE | 2017-11-20 14:51 | CT ---
EXAMINATION TYPE: CT angio head neck DATE OF EXAM: 11/20/2017 HISTORY: Lt side weakness COMPARISON: CT brain same date CT DLP: 344.1 mGycm. Automated Exposure Control for Dose Reduction was Utilized. TECHNIQUE: CTA scan of the neck is performed with IV Contrast, patient injected with 65 mL of Isovue 370, axial images are obtained, coronal and sagittal reformatted images are reviewed. Three-D recons tructed images are created on an independent workstation and reviewed. FINDINGS: Carotid/Vascular Structures: The neck shows patent thoracic aorta, left and right common carotid alon ry, innominate artery, left and right subclavian arteries are patent, left and right vertebral arteri es are patent and codominant. There is no evident aneurysm, proximal internal carotid artery stenosis , or dissection present. Cerebral vasculature is patent. No evident aneurysm or dissection. No filling defect to suggest embol us. Other: Lung apices show no mass. Suspect some mosaic perfusion. IMPRESSION: Patent vasculature. Additional findings above, follow-up as indicated.
--- NOTE | 2017-11-20 15:50 | ED ---
Neuro HPI - General Chief Complaint: Neuro Symptoms/Deficit Stated Complaint: Left side weakness Time Seen by Provider: 11/20/17 12:52 Source: RN/MD, EMS Mode of arrival: EMS Limitations: no limitations - History of Present Illness Is the patient presenting with stroke symptoms?: No Initial Comments: Niki stated they want to follow up with the Dr. Chew patient has ongoing weakness of the left arm and the left leg we tried to get hold of her rehab facility family members and her in charge nurse at the rehab facility the symptoms are ongoing for unknown duration, her daughter and numb said that she has a left-sided upper extremity and lower extremity weakness ongoing off and on for a few weeks also has a left eye [facility] Dr. Chew and Dr. Contreras has been the neurologist. She denies any headaches but has loss of vision on the left eye and this pain ongoing for a few days patient herself needed the rehab facility needed the family knows exact onset time and now left-sided weakness of the upper and lower extremities ongoing is 1 no chest pain or shortness of breath no abdominal pain no frequency urgency dysuria - Related Data Home Medications: Home Medications Medication Instructions Recorded Confirmed Atorvastatin [Lipitor] 20 mg PO HS 10/14/17 11/20/17 Lisinopril [Zestril] 2.5 mg PO HS 10/14/17 11/20/17 Dulaglutide [Trulicity] 1.5 mg SQ WE 10/15/17 11/20/17 Insulin Degludec [Tresiba 40 unit SQ HS 10/15/17 11/20/17 Flextouch U-200] Acetaminophen Tab [Tylenol Tab] 650 mg PO Q4H PRN 11/20/17 11/20/17 Aspirin [Children's Aspirin] 81 mg PO DAILY@1700 11/20/17 11/20/17 Bisacodyl [Dulcolax] 10 mg RECTAL DAILY PRN 11/20/17 11/20/17 Cholecalciferol [Vitamin D3] 3,000 unit PO DAILY 11/20/17 11/20/17 Docusate [Colace] 100 mg PO DAILY 11/20/17 11/20/17 INSULIN LISPRO (HumaLOG) [HumaLOG] 5 unit SQ AC-TID 11/20/17 11/20/17 INSULIN LISPRO (HumaLOG) [HumaLOG] See Protocol SQ ACHS 11/20/17 11/20/17 Magnesium Hydroxide [Milk of 2,400 mg PO DAILY PRN 11/20/17 11/20/17 Magnesia] Na Phos,M-B/Na Phos,Di-Ba [Fleet 1 dose RECTAL DAILY PRN 11/20/17 11/20/17 Adult] Pantoprazole [Protonix] 40 mg PO DAILY 11/20/17 11/20/17 metFORMIN HCL [Glucophage] 500 mg PO QID 11/20/17 11/20/17 oxyCODONE-APAP 5-325MG [Percocet 1 tab PO Q4HR PRN 11/20/17 11/20/17 5-325 mg] predniSONE 40 mg PO DAILY 11/20/17 11/20/17 Allergies/Adverse Reactions: Allergies Allergy/AdvReac Type Severity Reaction Status Date / Time hydromorphone [From Dilaudid] Allergy Confusion Verified 11/20/17 14:08 Penicillins Allergy Nausea & Verified 11/20/17 14:08 Vomiting Review of Systems ROS Statement: Those systems with pertinent positive or pertinent negative responses have been documented in the HPI. ROS Other: All systems not noted in ROS Statement are negative. General Exam - General Exam Comments Initial Comments: General: The patient is awake and alert, in no distress, her speech is not very fluent this is also not no but GCS is 15 she is able to follow the conversation adequately Skin: Skin is warm and dry and no rashes or lesions are noted. Eye: Pupils are equal, round and reactive to light, extra-ocular movements are intact; there is normal conjunctiva bilaterally. Ears, nose, mouth and throat: There are moist mucous membranes and no oral lesions. Neck: The neck is supple, there is no tenderness or JVD. Cardiovascular: There is a regular rate and rhythm. No murmur, rub or gallop is appreciated. Respiratory: To auscultation bilateral, decreased breath sounds bilateral Gastrointestinal: Soft, non-distended, non-tender abdomen without masses or organomegaly noted. There is no rebound or guarding present. Bowel sounds are unremarkable. Back: There is no tenderness to palpation in the midline. There is no obvious deformity. Musculoskeletal: Left upper and lower extremity are quite weak she is barely able to move him Neurological: CN II-XII intact, Cranial nerves III through XII are intact. There are no obvious motor or sensory deficits. Coordination appears grossly intact. Speech is normal. Psychiatric: Cooperative, appropriate mood & affect, normal judgment. Limitations: no limitations Stroke MDM - Lab Data Result diagrams: 11/20/17 13:30 11/20/17 13:30 Lab Results 11/20/17 11/20/17 11/20/17 Range/Units 13:30 13:30 13:30 WBC 10.0 (3.8-10.6) k/uL RBC 4.69 (3.80-5.40) m/uL Hgb 13.5 (11.4-16.0) gm/dL Hct 40.1 (34.0-46.0) % MCV 85.4 (80.0-100.0) fL MCH 28.7 (25.0-35.0) pg MCHC 33.6 (31.0-37.0) g/dL RDW 13.1 (11.5-15.5) % Plt Count 241 (150-450) k/uL Neutrophils % 81 % Lymphocytes % 14 % Monocytes % 4 % Eosinophils % 1 % Basophils % 0 % Neutrophils # 8.1 H (1.3-7.7) k/uL Lymphocytes # 1.4 (1.0-4.8) k/uL Monocytes # 0.4 (0-1.0) k/uL Eosinophils # 0.1 (0-0.7) k/uL Basophils # 0.0 (0-0.2) k/uL PT (9.0-12.0) sec INR (<1.2) APTT (22.0-30.0) sec Sodium 141 (137-145) mmol/L Potassium 4.0 (3.5-5.1) mmol/L Chloride 99 (98-107) mmol/L Carbon Dioxide 32 H (22-30) mmol/L Anion Gap 10 mmol/L BUN 22 H (7-17) mg/dL Creatinine 0.64 (0.52-1.04) mg/dL Est GFR (CKD-EPI)AfAm >90 (>60 ml/min/1.73 sqM) Est GFR (CKD-EPI)NonAf >90 (>60 ml/min/1.73 sqM) Glucose 114 H (74-99) mg/dL Calcium 8.5 (8.4-10.2) mg/dL Total Bilirubin 0.4 (0.2-1.3) mg/dL AST 19 (14-36) U/L ALT 39 (9-52) U/L Alkaline Phosphatase 57 (38-126) U/L Total Creatine Kinase <20 L (30-135) U/L CK-MB (CK-2) <0.2 (0.0-2.4) ng/mL CK-MB (CK-2) Rel Index Troponin I <0.012 (0.000-0.034) ng/mL Total Protein 5.4 L (6.3-8.2) g/dL Albumin 3.0 L (3.5-5.0) g/dL 11/20/17 Range/Units 13:30 WBC (3.8-10.6) k/uL RBC (3.80-5.40) m/uL Hgb (11.4-16.0) gm/dL Hct (34.0-46.0) % MCV (80.0-100.0) fL MCH (25.0-35.0) pg MCHC (31.0-37.0) g/dL RDW (11.5-15.5) % Plt Count (150-450) k/uL Neutrophils % % Lymphocytes % % Monocytes % % Eosinophils % % Basophils % % Neutrophils # (1.3-7.7) k/uL Lymphocytes # (1.0-4.8) k/uL Monocytes # (0-1.0) k/uL Eosinophils # (0-0.7) k/uL Basophils # (0-0.2) k/uL PT 10.0 (9.0-12.0) sec INR 1.0 (<1.2) APTT 18.6 L (22.0-30.0) sec Sodium (137-145) mmol/L Potassium (3.5-5.1) mmol/L Chloride (98-107) mmol/L Carbon Dioxide (22-30) mmol/L Anion Gap mmol/L BUN (7-17) mg/dL Creatinine (0.52-1.04) mg/dL Est GFR (CKD-EPI)AfAm (>60 ml/min/1.73 sqM) Est GFR (CKD-EPI)NonAf (>60 ml/min/1.73 sqM) Glucose (74-99) mg/dL Calcium (8.4-10.2) mg/dL Total Bilirubin (0.2-1.3) mg/dL AST (14-36) U/L ALT (9-52) U/L Alkaline Phosphatase (38-126) U/L Total Creatine Kinase (30-135) U/L CK-MB (CK-2) (0.0-2.4) ng/mL CK-MB (CK-2) Rel Index Troponin I (0.000-0.034) ng/mL Total Protein (6.3-8.2) g/dL Albumin (3.5-5.0) g/dL Past Medical History Past Medical History: Diabetes Mellitus, Hyperlipidemia, Hypertension, Osteoarthritis (OA), Skin Disorder, Vascular Disorder Additional Past Medical History / Comment(s): Diabetes-Trulicity SQ weekly, numbness/tingling bilateral legs, bilateral legs vascular disease, peripheral edema bilateral legs-especially R side, arthritis L knee, occassional back pain , 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 History of Any Multi-Drug Resistant Organisms: None Reported Past Surgical History: Bladder Surgery, Cholecystectomy, Hysterectomy, Joint Replacement, Orthopedic Surgery, Tubal Ligation Additional Past Surgical History / Comment(s): R knee arthroscopy, R knee manipulation, total right knee replacement x 2, bilateral carpal tunnel releases , colonoscopy, bladder suspension, I&D R lower abdomin abscess. Past Anesthesia/Blood Transfusion Reactions: No Reported Reaction Past Psychological History: No Psychological Hx Reported Smoking Status: Never smoker Past Alcohol Use History: None Reported Past Drug Use History: None Reported - Past Family History Mother Family Medical History: No Reported History Father Family Medical History: Cancer, Diabetes Mellitus Additional Family Medical History / Comment(s): Father had thyroid cancer. Course Vital Signs 11/20/17 11/20/17 11/20/17 12:54 14:08 15:08 Temperature 98 F Pulse Rate 79 82 74 Respiratory 16 18 18 Rate Blood Pressure 110/57 119/58 121/60 O2 Sat by Pulse 98 96 96 Oximetry EKG is normal sinus ventricular rate is 82 PA interval is 146 QRS duration is 78 QT/QTc is 378/441 review of this EKG does not reveal any ST elevation I did notice some bit of a ST above the baseline pain to the and aVF patient hasn't no chest pain and a troponin is negative and imaging was reviewed head CT is consistent with the some old CVA CT angios are unremarkable. I spoke with the Dr. Cespedes actually recommended we do another MRI in the morning and then he will the patient and discuss with them about the further plan I also plan to consult ophthalmology patient is admitted to Dr. Ray because family wants to see Dr. Chew family clearly stated that they wanted Dr. Chew to be her primary care Disposition Clinical Impression: Left-sided weakness, Vision disturbance Disposition: ADMITTED IP TO THIS [facility] Referrals: Abhi Baer MD [Primary Care Provider] - 1-2 days
[2017-11-20] MEDS ORDERED: ACETAMINOPHEN TAB 325 MG TAB PO PRN ×2 (16:02→20:16)
[2017-11-20] MEDS ORDERED: NALOXONE 0.4 MG/ML 1 ML VIAL IV PRN (16:02)
[2017-11-20] MEDS ORDERED: ONDANSETRON 4 MG/2 ML VIAL IVP PRN (16:02)
[2017-11-20] MEDS ORDERED: NA PHOS,M-B/NA PHOS,DI-BA 133 ML ENEMA RECTAL PRN (16:06)
[2017-11-20] MEDS ORDERED: NON-FORMULARY DRUG (Dulaglutide [Trulicity] 1.5 MG) SQ SCH (16:15)
--- NOTE | 2017-11-20 16:44 | XR ---
EXAMINATION TYPE: XR orbit pre-MRI foreign body DATE OF EXAM: 11/20/2017 COMPARISON: NONE HISTORY: Screening for foreign body in the orbits TECHNIQUE: 3 views FINDINGS: Orbital margins are intact. There is no evidence of radiopaque foreign body. IMPRESSION: Negative exam.
[2017-11-20 18:07] VITALS: BMI 39.2
[2017-11-20] MEDS: ASPIRIN 81 MG PO SCH (19:15)
[2017-11-20] MEDS: INSULIN ASPART 100 UNIT/ML 1 ML 10 ML VIAL SQ SCH (19:15)
[2017-11-20] MEDS: metFORMIN 500 MG TAB PO SCH ×2 (19:15→21:49)
[2017-11-20] MEDS: ATORVASTATIN 20 MG TAB PO SCH (19:16)
[2017-11-20] MEDS: LISINOPRIL 2.5 MG TAB PO SCH (19:16)
[2017-11-20] MEDS ORDERED: CALCIUM CARBONATE 500 MG CHEWABLE PO PRN (20:16)
[2017-11-20] MEDS ORDERED: LORazepam 0.5 MG TAB PO PRN (20:16)
[2017-11-20] MEDS ORDERED: MELATONIN 3 MG TABLET PO PRN (21:00)
[2017-11-20] MEDS ORDERED: TRESIBA SQ SCH (21:00)
[2017-11-20] MEDS ORDERED: MD COMMUNICATION TO PHARMACY 1 EACH MISC PO PRN (21:00)
[2017-11-20] MEDS ORDERED: TRESIBA U SQ SCH (21:00)
--- NOTE | 2017-11-20 21:07 | HP ---
HISTORY AND PHYSICAL DATE OF ADMISSION: 11/20/17. DATE OF SERVICE: 11/20/17. PRESENTING COMPLAINT: Weakness on the left side. HISTORY OF PRESENTING COMPLAINT: This is a 67-year-old patient of Dr. Chew who has previously followed with Dr. Baer, but the family requests PCP changed to Dr. Chew. The patient is currently at [facility] being followed by him there. The patient's chronic stable medical conditions include diabetes, hypertension, hyperlipidemia, osteoarthritis, peripheral neuropathy. The patient was here in the hospital in September of this year because of frequent falls and left knee pain. Left knee was giving way. Patient then went to [facility] where she was admitted there for about 2 weeks. From there she was transferred to [facility]. While at [facility], she was noted to have some weakness in the left arm and a CT scan of the brain that showed some white matter changes. There was a question of a diagnosis about multiple sclerosis. The patient did have appointment in Dr. Contreras's office not too long ago and patient recently just had 5 days of high-dose steroids. Did not make difference much to the symptoms. The patient in the last few days has got sudden decrease in vision in the left eye. The patient's speech also fluctuates on and off, sometimes becoming slurred and other times doing better. The patient also weak on the left side both the arm and the leg and again the weakness fluctuates. Because of these symptoms, she was brought in from the [facility] for further workup. She has outpatient scheduled for MRI. At [facility] patient had been walking about 10 steps, but currently not able to walk at all. The patient is incontinent of urine. The patient's speech is rather slurred right now. Most of the history is obtained by the and the daughter at the bedside. REVIEW OF SYSTEMS: CONSTITUTIONAL: Tired. HEENT: Decreased vision in the left eye. RESPIRATORY: None. CARDIOVASCULAR: None. GASTROINTESTINAL: None. GENITOURINARY: Incontinence. DERMATOLOGICAL, HEMATOLOGIC, LYMPHATIC: None. PSYCHIATRY: None. NEUROLOGICAL: As above. MUSCULOSKELETAL: Arthritic pain in many joints. PAST MEDICAL HISTORY: Diabetes, hypertension, hyperlipidemia, osteoarthritis, peripheral neuropathy, demyelinating disorder, multiple sclerosis has not been confirmed. Granuloma , abdominal abscess, occasional back pain. PAST SURGICAL HISTORY: Bladder surgery, cholecystectomy, hysterectomy, joint replacement, tubal ligation, right knee arthroscopy, right knee ablation, right total knee, bilateral carpal tunnel release, bladder suspension, abdominal abscess I and D. SOCIAL HISTORY: Currently at [facility]. No smoking. No alcohol. FAMILY HISTORY: Father had thyroid cancer. HOME MEDICATIONS: 1. Prednisone 40 mg a day. 2. Percocet 5 one tablet q.4 p.r.n. 3. Glucophage 500 mg p.o. q.i.d. 4. Protonix 40 mg p.o. daily. 5. Adult Fleet 1 dose rectally daily p.r.n. 6. Milk of magnesia 2500 mg p.o. daily p.r.n. 7. Zestril 2.5 q.h.s. 8. Tarceva 40 units subcu q.h.s. 9. Humalog 5 units a.c. t.i.d. 10.Trulicity 1.5 subcu on Wednesdays. 11.Colace 100 mg a day. 12.Vitamin D3 3000 units p.o. daily. 13.Dulcolax 10 mg rectal daily p.r.n. 14.Lipitor 20 mg q.h.s. 15.Aspirin 81 mg a day. 16.Tylenol. ALLERGIES: To DILAUDID AND PENICILLIN. PHYSICAL EXAMINATION: Vital signs on presentation: Temperature 98, pulse 79, respiration 16, blood pressure 110/57, pulse ox 98% on room air. GENERAL APPEARANCE: Well built, BMI 39.3. Lying in bed. EYES: Pupils equal. Conjunctivae normal. HEENT: External appearance of nose and ears normal. Oral cavity normal. NECK: Short, thick, JVD unable to assess. RESPIRATORY: Effort normal. Lungs, diminished breath sounds. CARDIOVASCULAR: First and second sounds, no edema. ABDOMEN: Soft, nontender. Liver and spleen not palpable. LYMPHATIC: No lymph node palpable in neck or axillae. PSYCHIATRY: Difficult to assess, patient is able answer simple questions. NEUROLOGICAL: Pupils are equal. Decreased vision in the left eye. The patient's speech is slow. Power in the left leg is 2/5, power in the left arm is 3/5. Sensation grossly intact. INVESTIGATION: White count 10, hemoglobin 13.5, potassium 4.0, BUN 22, creatinine 0.64. Troponin negative. CT scan of the brain: Chronic small-vessel disease, some low attenuation present in the white matter. CT angio: Unremarkable. EKG: Normal sinus rhythm. ASSESSMENT: 1. This is a patient who over the course of about 3-4 weeks has had episodes of recurrent weakness on the left arm and leg which is fluctuating. Speech is also fluctuating and decreased vision in the left eye. The symptoms are rather compatible with demyelinating disorder of multiple sclerosis. The patient has had a course of high dose of steroids with not much help. Patient is being followed by Dr. Contreras. The patient was due for more studies including lumbar puncture and MRI as an outpatient. 2. Obesity; BMI 39.3. 3. Severe medical debility. Patient is now pretty much bed bound. 4. Diabetes mellitus type 2 on oral hypoglycemic. 5. Hypertension. 6. Hyperlipidemia. 7. Primary osteoarthritis especially of the left knee. 8. Peripheral neuropathy. 9. Chronic urinary stress incontinence. PLAN: Home medications are resumed. Will stop patient's steroids. Family is reluctant for this until further evaluation by Dr. Contreras. MRI of the brain has been ordered and lumbar puncture will be ordered through Interventional Radiology to be sent off for multiple sclerosis panel. Accu-Cheks will be followed. Care was discussed with the patient and at the bedside. MMODL / IJN: [id number] /
[2017-11-20] MEDS: INSULIN DETEMIR 100 UNIT/ML 10 ML VIAL SQ SCH (21:47)
[2017-11-20 21:49] LABS: Glucose,Whole Blood 225 mg/dL (75-99)
--- NOTE | 2017-11-20 22:06 | P.CON ---
Consult Note - . Consult date: 11/20/17 Assessment/Plan:: This is a 67 y/o female who apparently has had a recent CVA in October and then a subsequent one today. She is a poor historian, however the eye consultation is for a complaint of poor vision in the left eye for about the last week. Since the onset of he vision change, she denies improvement or worsening, but feels cannot see. She states that she was awake, but cannot recall the activity she was performing when the vision change had onset. Additionally, she cannot describer the way in which the vision had changed either. She states she's been a diabetic since 2011. She cannot relate her A-1-C, but states the sugars are not too bad at 280 mg%. Her last eye exam was about year ago at [facility], and has yet to make an appointment for her annual exam. She also stated she had cataract surgery a long time ago, in the last year by either Dr. De La Cruz or Dr. Duenas. There has been no YAG performed at this time as she can recall. There have been no noted significant diabetic findings as of her last eye exam. She denies any glaucoma problem or the regular use of any drops, including artificial tears. She denies any PMR or GCA symptoms. Exam: Vision: w/ current glasses 20/20 OD, 20/30 OS Pupils: no APD noted Confrontational Pina: Full OU EOM: Full D&V and is orthophoric, near point is about 10 cm IOP: 18 mm Hg OU @ 2020 hrs, (Tonopen) (nondilated) Eyelids: unremarkable Cornea: clear without staining ant Chamber: deep & quiet Iris: no pathology Lens: pseudophakia OU, no gross PCO changes Vitreous: grossly clear Optic nerve: distinct, pink, C:D 0.40 OU macula: quiet OU Vasculature: grossly normal OU A: 1) subjective change in vision without substantiated significant loss on the left 2) CVA recent, without noted involvement in CN I, II, III, IV, V, 3) dry eye in diabetic and post menopausal female is not unusual, cause of vision change while undergoing systemic treatments? 4) No overt diabetic findings in eye grounds, however will require a more thorough exam with the proper equipment in office P: 1) start artificial tears on scheduled for reasons noted above 2) recommend full complete annual eye exam on discharge to either Drs. De La Cruz or Yulissa. 3) will follow peripherally, and examine if there are further changes in vision or develops other eye problems while admitted.
[2017-11-20] MEDS: ARTIFICIAL TEARS-HYPROMELLOSE DROPS 15 ML BTL BOTH EYES SCH (23:11)
[2017-11-21] MEDS: INSULIN ASPART 100 UNIT/ML 1 ML 10 ML VIAL SQ SCH ×6 (07:03→16:44)
[2017-11-21 07:05] LABS: Glucose,Whole Blood 50 mg/dL (75-99)
[2017-11-21 07:25] LABS: Glucose,Whole Blood 66 mg/dL (75-99)
[2017-11-21 07:48] LABS: Glucose,Whole Blood 78 mg/dL (75-99)
[2017-11-21] MEDS: CHOLECALCIFEROL 1,000 UNIT TAB PO SCH (08:15)
[2017-11-21] MEDS: ARTIFICIAL TEARS-HYPROMELLOSE DROPS 15 ML BTL BOTH EYES SCH ×4 (08:15→21:21)
[2017-11-21] MEDS: PANTOPRAZOLE 40 MG TABLET PO SCH (08:16)
[2017-11-21] MEDS: metFORMIN 500 MG TAB PO SCH ×5 (08:16→21:13)
[2017-11-21] MEDS ORDERED: predniSONE 20 MG TAB PO SCH (09:00)
[2017-11-21 11:46] LABS: Glucose,Whole Blood 75 mg/dL (75-99)
--- NOTE | 2017-11-21 13:49 | FL ---
EXAMINATION TYPE: FL guided lumbar puncture LP DATE OF EXAM: 11/21/2017 COMPARISON: NONE HISTORY: Concern for multiple sclerosis. Request for lumbar puncture with cerebrospinal fluid to be s ent to the laboratory for analysis. SEDATION: No conscious sedation. Lidocaine was utilized. The patient and the patient's vital signs were monito red by qualified independent radiology nursing staff. TECHNIQUE: The procedure and potential risks were explained to patient and an informed consent was obtained with teach back. Site and side was verified. A preprocedural time out was performed. 3 fluoroscopic image s were saved. Fluoroscopy time: 1 minute and 18 seconds The patient was placed prone on the fluoroscopy table and the L5-S1 level was localized and the skin was marked and was prepped and draped in the usual sterile fashion. Unsuccessful attempt was made at L5-S1 and therefore second attempt at the level of L4-L5 was performed. Lidocaine was used for local anesthesia. Utilizing fluoroscopic guidance a 20-gauge spinal needle was placed through the skin and into the subarachnoid space. Approximately 4 of clear, colorless cerebral spinal fluid was obtained. A scant amount of blood was seen as the needle was withdrawn. The patient tolerated the procedure well and was sent back the inpatient floor in satisfactory condit ion. The fluid was sent to the lab for analysis. The estimated blood loss was minimal. The patient's condition was unchanged following the procedure. IMPRESSION: Successful accumulation of 4 cc of clear CSF.
[2017-11-21] MEDS: ASPIRIN 81 MG PO SCH (14:10)
[2017-11-21] MEDS: oxyCODONE-APAP 5-325MG 1 EACH TAB PO PRN ×2 (14:58→21:21)
--- NOTE | 2017-11-21 16:04 | MR ---
EXAMINATION TYPE: MR brain wo con DATE OF EXAM: 11/21/2017 COMPARISON: 11/20/2017 examinations HISTORY: Lt side weakness, Lt facial droop, and Lt eye vision loss TECHNIQUE: Multiplanar, multisequence images of the brain and brainstem is performed without intravenous contras t. FINDINGS: Patchy areas of restricted diffusion demonstrating T2/FLAIR hyperintensity are seen within the parasagittal and periventricular right hemispheric including the right frontal lobe, right tempor al lobe, right parietal lobe and right occipital lobe. These appear to involve white matter only. The re is a characteristic parasagittal chain like distribution of the deep white matter representing a s elisabet vascular territory between the superficial branches of the deep perforators of the cerebral art eries. This can be seen and severely impaired cerebral blood flow such as prolonged hypotensive event s, cardiac arrest or vascular disease. There is mild symmetric volume loss as there is prominence of the peripheral sulci and ventricular sy stem. Punctate prominent perivascular spaces are noted. Some patchy hyperintensity is also seen withi n the kaitlin that does not demonstrate restricted diffusion and could relate to gliosis from prior micr oangiopathy. Mild mucosal thickening is present within the ethmoid and frontal sinuses. No suspicious extra-axial fluid collection is identified. Bone marrow signal is within normal limits. Midline stru ctures demonstrate normal morphology. The craniocervical junction appears within normal limits. The dural venous sinuses appear patent. The visualized sinuses are clear and the globes are intact. IMPRESSION: Multifocal restricted diffusion and extensive white matter change confined to the right h emisphere. As detailed above this is within a watershed zone and can be seen in severely impaired cer ebral blood flow such as an prolonged hypotensive events, cardiac arrest, or vascular disorders. No a pparent vascular occlusion is identified. Alternatively and less likely this finding could represent demyelinating disease or gliomatosis from underlying neoplasm and therefore contrast enhanced examina tion is recommended.
[2017-11-21 16:35] LABS: Glucose,Whole Blood 61 mg/dL (75-99)
[2017-11-21 17:01] LABS: Glucose,Whole Blood 63 mg/dL (75-99)
--- NOTE | 2017-11-21 17:18 | P.CONS ---
History of Present Illness - Reason for Consult Consult date: 11/21/17 Left sided weakness - Chief Complaint Left sided weakness - History of Present Illness Is a pleasant 67-year-old female being evaluated by the neurology service for left-sided weakness. She was a current resident [facility] subsequent to hospitalization at [facility] for similar complaints. She was doing better at the facility and was actually up and walking with a walker when her left knee gave out. It was then noticed that she was having some more left arm weakness. CT of the brain showed some white matter changes. A subsequent MRI of the brain showed possible demyelinating disease. She was given IV steroids and there are some conflicting stories as to the results. However the patients that her symptoms did not resolve with IV steroids and she had some anxiety and flushing with them. She also had some decreased visual acuity in the left eye and the last few days. She's been having some speech difficulties and some left facial weakness also. A lumbar puncture was accomplished earlier today to assess her CSF for oligoclonal bands, and we are awaiting these results. However, in the meantime results have come in from her MRI. It did show multifocal white matter abnormalities in the right hemisphere. This is within a watershed zone and can be seen in severely impaired blood flow like hypotensive events and cardiac arrest. It is felt to be less likely due to demyelinating disease or gliomatosis from some kind of neoplasm. In any case, we will order now an MRI with contrast and an MRA of the brain. At the time of my exam the patient is laying flat as she is status post lumbar puncture. She still has significant left sided weakness. 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 History of Any Multi-Drug Resistant Organisms: None Reported Past Surgical History: Bladder Surgery, Cholecystectomy, Hysterectomy, Joint Replacement, Orthopedic Surgery, Tubal Ligation Additional Past Surgical History / Comment(s): R knee arthroscopy, R knee manipulation, total right knee replacement x 2, bilateral carpal tunnel releases , colonoscopy, bladder suspension, I&D R lower abdomin abscess. Past Anesthesia/Blood Transfusion Reactions: No Reported Reaction Past Psychological History: No Psychological Hx Reported Additional Psychological History / Comment(s): Patient admitted from [facility], currently there receiving physical therapy. Smoking Status: Never smoker Past Alcohol Use History: None Reported Past Drug Use History: None Reported - Past Family History Mother Family Medical History: No Reported History Father Family Medical History: Cancer, Diabetes Mellitus Additional Family Medical History / Comment(s): Father had thyroid cancer. Medications and Allergies Home Medications Medication Instructions Recorded Confirmed Type Atorvastatin [Lipitor] 20 mg PO HS 10/14/17 11/20/17 History Lisinopril [Zestril] 2.5 mg PO HS 10/14/17 11/20/17 History Dulaglutide [Trulicity] 1.5 mg SQ WE 10/15/17 11/20/17 History Insulin Degludec [Tresiba 40 unit SQ HS 10/15/17 11/20/17 History Flextouch U-200] Acetaminophen Tab [Tylenol Tab] 650 mg PO Q4H PRN 11/20/17 11/20/17 History Aspirin [Children's Aspirin] 81 mg PO DAILY@1700 11/20/17 11/20/17 History Bisacodyl [Dulcolax] 10 mg RECTAL DAILY PRN 11/20/17 11/20/17 History Cholecalciferol [Vitamin D3] 3,000 unit PO DAILY 11/20/17 11/20/17 History Docusate [Colace] 100 mg PO DAILY 11/20/17 11/20/17 History INSULIN LISPRO (HumaLOG) [HumaLOG] 5 unit SQ AC-TID 11/20/17 11/20/17 History INSULIN LISPRO (HumaLOG) [HumaLOG] See Protocol SQ ACHS 11/20/17 11/20/17 History Magnesium Hydroxide [Milk of 2,400 mg PO DAILY PRN 11/20/17 11/20/17 History Magnesia] Na Phos,M-B/Na Phos,Di-Ba [Fleet 1 dose RECTAL DAILY PRN 11/20/17 11/20/17 History Adult] Pantoprazole [Protonix] 40 mg PO DAILY 11/20/17 11/20/17 History metFORMIN HCL [Glucophage] 500 mg PO QID 11/20/17 11/20/17 History oxyCODONE-APAP 5-325MG [Percocet 1 tab PO Q4HR PRN 11/20/17 11/20/17 History 5-325 mg] predniSONE 40 mg PO DAILY 11/20/17 11/20/17 History Allergies Allergy/AdvReac Type Severity Reaction Status Date / Time hydromorphone [From Dilaudid] Allergy Confusion Verified 11/20/17 14:08 Penicillins Allergy Nausea & Verified 11/20/17 14:08 Vomiting Physical Exam Vitals: Vital Signs Temp Pulse Pulse Resp BP BP Pulse Ox 11/21/17 16:00 84 16 11/21/17 13:41 16 124/72 11/21/17 13:30 16 120/70 11/21/17 13:15 18 121/74 11/21/17 13:02 18 119/72 11/21/17 12:46 96 18 151/78 97 11/21/17 12:00 87 18 11/21/17 08:00 97.5 F L 87 18 128/68 95 11/21/17 04:00 97.1 F L 83 18 125/66 96 11/21/17 00:00 88 16 118/61 98 11/20/17 20:16 95 11/20/17 20:00 99.5 F 96 16 117/62 95 11/20/17 19:00 103 H 16 11/20/17 17:50 98.7 F 80 16 125/65 96 11/20/17 17:26 98.4 F 73 16 134/62 95 Intake and Output 11/21/17 11/21/17 11/21/17 06:59 14:59 22:59 Intake Total 120 Output Total 500 200 200 Balance -500 -80 -200 Intake: Oral 120 Output: Urine 500 200 200 Other: Voiding Method Incontinent Incontinent Incontinent # Voids 1 Weight 72 kg - Constitutional General appearance: cooperative, mild distress, obese - EENT Eyes: no abnormal pupil, EOMI, PERRLA ENT: hearing grossly normal - Neck Neck: normal ROM, no rigidity - Respiratory Respiratory: negative: prolonged expiration, prolonged inspiration - Cardiovascular Rhythm: regular - Gastrointestinal General gastrointestinal: no distended, no tenderness - Neurologic Patient is awake alert and oriented 3. Speech is dysarthric she has left- sided facial weakness and language testing is normal. She has a mild sensory deficit of the left upper and lower extremity. She has some blurring of the left eye but no visual field cuts. Strength testing is 3 out of 5 in left upper and lower extremities. It is 5 minus out of 5 on the right side. No tremors or seizure-like activities are seen. Results CBC & Chem 7: 11/20/17 13:30 11/20/17 13:30 Labs: Abnormal Lab Results - Last 24 Hours (Table) 11/20/17 11/21/17 11/21/17 Range/Units 21:29 06:46 07:05 POC Glucose (mg/dL) 225 H 50 L 66 L (75-99) mg/dL 11/21/17 Range/Units 16:24 POC Glucose (mg/dL) 61 L (75-99) mg/dL Assessment and Plan (1) CVA (cerebral vascular accident) Current Visit: Yes Status: Acute Code(s): I63.9 - CEREBRAL INFARCTION, UNSPECIFIED SNOMED Code(s): 746739960 (2) Dysarthria Current Visit: Yes Status: Acute Code(s): R47.1 - DYSARTHRIA AND ANARTHRIA SNOMED Code(s): 7579715 (3) Left-sided weakness Current Visit: Yes Status: Acute Code(s): R53.1 - WEAKNESS SNOMED Code(s) : 488135514 (4) Vision disturbance Current Visit: Yes Status: Acute Code(s): H53.9 - UNSPECIFIED VISUAL DISTURBANCE SNOMED Code(s): 80090277 (5) Diabetes Current Visit: No Status: Chronic Code(s): E11.9 - TYPE 2 DIABETES MELLITUS WITHOUT COMPLICATIONS SNOMED Code(s): 48859784 (6) Hyperlipidemia Current Visit: No Status: Chronic Code(s): E78.5 - HYPERLIPIDEMIA, UNSPECIFIED SNOMED Code(s): 55168104 (7) Hypertension Current Visit: No Status: Chronic Code(s): I10 - ESSENTIAL (PRIMARY) HYPERTENSION SNOMED Code(s): 50680725 Plan: The patient has suffered an acute ischemic stroke in the right middle cerebral artery distribution. This may be on top of other multiple infarcts. Demyelinating disease and/or neoplasm have also not yet been ruled out. As above we will order an MRI with contrast along with an MRA of the brain. Recommend starting with PTOT and speech therapy as soon as possible. We will change her aspirin to Plavix. She'll continue Lipitor. Cardiology consultation has been placed for evaluation of cardiac status and to perform a transesophageal echocardiogram to rule out intracardiac thrombus. Her blood pressures have been good so other sources of hypoperfusion need to be ruled out with the above MRA. Continue neurological checks. We will continue to follow and make further recommendations based on the above study. I have performed a history and physical on the above patient. I have reviewed the above note, and agree.
[2017-11-21 17:30] LABS: Glucose,Whole Blood 103 mg/dL (75-99)
--- NOTE | 2017-11-21 19:54 | MR ---
EXAMINATION TYPE: MR angio head wo con DATE OF EXAM: 11/21/2017 COMPARISON: HISTORY: Lt side weakness, Lt facial droop, and Lt eye vision loss, abnormal MRI TECHNIQUE: Time of flight images focusing on the [place] of [place] were performed without contrast. FINDINGS: There is arterial flow in the vertebrobasilar artery system. There is arterial flow in the anterior middle and posterior cerebral arteries. There is fairly symmetric appearance of the distal v ertebral arteries. I see no evidence of aneurysm or neovascularity. There is no evidence of focal steve nosis. There is patency of the right posterior communicating artery. There is no mass effect. IMPRESSION: No significant abnormality. No focal stenosis seen. I do not see abnormality that explains the extens tu white matter disease on the right side on the MR scan today.
--- NOTE | 2017-11-21 20:42 | MR ---
EXAMINATION TYPE: MR brain w con DATE OF EXAM: 11/21/2017 COMPARISON: Today HISTORY: Lt side weakness, Lt facial droop, and Lt eye vision loss, abnormal MRI TECHNIQUE: Multiplanar, multisequence images of the brain and brainstem is performed without and with IV contras t, utilizing 7 mL intravenous Gadavist . FINDINGS: These contrast only images show no pathologic enhancement. There is cerebral cortical atrop hy. There is no midline shift. There is no evidence of intracranial hemorrhage. IMPRESSION: No pathologic enhancement to suggest an acute or subacute infarct or any other acute proc ess.
[2017-11-21 21:12] LABS: Glucose,Whole Blood 101 mg/dL (75-99)
[2017-11-21] MEDS: INSULIN DETEMIR 100 UNIT/ML 10 ML VIAL SQ SCH ×2 (21:12→23:26)
[2017-11-21] MEDS: LISINOPRIL 2.5 MG TAB PO SCH (21:21)
[2017-11-21] MEDS: ATORVASTATIN 20 MG TAB PO SCH (21:21)
[2017-11-21] MEDS: MAGNESIUM HYDROXIDE 2,400 MG/10 ML CUP PO PRN (21:36)
--- NOTE | 2017-11-21 23:11 | PN ---
PROGRESS NOTE DATE OF SERVICE: 11/21/2017 PRESENTING COMPLAINT: Weakness on the left side. INTERVAL HISTORY: This patient has a demyelinating disorder; diagnosis of MS is not confirmed. The patient had an MRI with and without contrast. She was seen by Dr. Contreras's team. Watershed area was found, more compatible with a stroke. Lumbar puncture was also done. Patient was started on Plavix. Patient has got left-sided weakness and decrease in the left eye vision. REVIEW OF SYSTEMS: Done for constitutional, cardiovascular, GI, pulmonary, neuro; relevant findings as above. CURRENT MEDICATIONS: Reviewed. They include Plavix. PHYSICAL EXAMINATION: Temperature 97.5, pulse 57, respiration 18, blood pressure 128/68, pulse ox 95% on room air. GENERAL APPEARANCE: Lying in bed, awake. EYES: Pupils equal. Conjunctivae normal. HEENT: External appearance of nose and ears normal. Oral cavity normal. NECK: Soft, thick. JVD unable to assess. RESPIRATORY: Effort normal. LUNGS: Diminished breath sounds. CARDIOVASCULAR: First and second sounds normal. No edema. NEUROLOGICAL: Decreased vision in the left eye. Speech remains slow. Power in the left leg is 2 to 3 out of 5; left arm is 3 out of 5. INVESTIGATIONS: Accu-Cheks 61, 63, 103. MRA of the brain: No stenosis reported. No blockages. MRA of the brain shows a watershed area. ASSESSMENT: 1. Possible stroke in the right middle cerebral artery area with left hemiparesis. 2. Possible underlying demyelinating disorder, extensive white matter changes; could be MS. A lot of patient's neurological symptoms have been fluctuating. 3. Obesity with body mass index of 39.3. 4. Severe medical debility. Patient is bedbound. 5. Diabetes mellitus, type 2, on oral hypoglycemic, uncontrolled with hypoglycemia. 6. Essential hypertension. 7. Hyperlipidemia. 8. Primary osteoarthritis, especially of the left knee. 9. Peripheral neuropathy. 10.Chronic urinary stress incontinence. PLAN: Will decrease patient's Levemir to 20 units, and the patient's Glucophage may be resumed tomorrow. Will also hold off the scheduled NovoLog for right now and keep the patient on Accu-Cheks. All feeding to be assisted. Await further input from Neurology. MMODL / IJN: [id number] /
[2017-11-22 05:54] LABS: Glucose,Whole Blood 99 mg/dL (75-99)
[2017-11-22] MEDS: INSULIN ASPART 100 UNIT/ML 1 ML 10 ML VIAL SQ SCH ×6 (06:25→18:40)
[2017-11-22] MEDS: CHOLECALCIFEROL 1,000 UNIT TAB PO SCH (08:39)
[2017-11-22] MEDS: ARTIFICIAL TEARS-HYPROMELLOSE DROPS 15 ML BTL BOTH EYES SCH ×4 (08:39→21:54)
[2017-11-22] MEDS: PANTOPRAZOLE 40 MG TABLET PO SCH (08:39)
[2017-11-22 08:40] LABS: Glucose,Whole Blood 108 mg/dL (75-99)
[2017-11-22 11:29] LABS: Glucose,Whole Blood 162 mg/dL (75-99)
--- NOTE | 2017-11-22 11:48 | CONS ---
CONSULTATION REASON FOR CONSULTATION: [place]. Left-sided weakness. This is a 67-year-old lady who was initially admitted to [facility] following a fall, developed weakness involving the left side of her body initially thought to be secondary to demyelinating disease had been treated with steroids. Her neurological symptoms are getting worse and she is readmitted to the hospital for the same. I have been consulted to perform a transesophageal echo to rule out cardiac source for thromboembolic CVA. PAST MEDICAL HISTORY: Significant for hypertension, diabetes, dyslipidemia, TIA. PAST SURGICAL HISTORY: Significant for cholecystectomy, hysterectomy, bladder surgery, joint replacement. MEDICATIONS: Medications at home include Lipitor, Zestril, Trulicity, Tylenol, aspirin, Dulcolax, insulin, metformin, Protonix. ALLERGIES: PENICILLIN and DILAUDID. FAMILY HISTORY: Negative for premature coronary artery disease. SOCIAL HISTORY: Denies current smoking, EtOH abuse, or drug abuse. REVIEW OF SYSTEMS: HEENT is significant for facial droop. WELL SHOOTER: Significant for left-sided weakness. CARDIAC: Negative. RESPIRATORY: Negative. GI: Negative. GENITOURINARY: Negative. ALLERGY/IMMUNOLOGY: Negative. MUSCULOSKELETAL: Significant for arthritis. PSYCHOSOCIAL: Negative. ENDOCRINE: Negative. HEMATOLOGIC: Negative. DERM: Negative. CONSTITUTIONAL: Negative. ONCOLOGICAL: Negative. Rest of the system review is not relevant. PHYSICAL EXAMINATION: On exam, comfortable at rest. Afebrile. Vital signs are stable. There is no jugular venous distention. Carotid upstroke is normal. There is no bruit. Chest exam reveals good air entry bilaterally. Heart exam reveals first and second heart sounds. No gallop. No murmur. No rub. Abdomen is soft, nontender. Examination of extremities did not reveal any edema. Peripheral pulses are palpable. WELL SHOOTER: There is weakness on the left side of her body. LABS: Labs show that the hemoglobin is 13.5, platelet count is 240. Potassium is 4. Creatinine is 0.6. ASSESSMENT: Cerebrovascular accident, rule out cardiac source for thromboembolic phenomenon. PLAN: Patient will undergo a transesophageal echo by me today. I explained risks, benefits. MMODL / IJN: [id number] /
[2017-11-22] MEDS ORDERED: fentaNYL (PF) 50 MCG/ML 2 ML AMP ONE (12:26)
[2017-11-22] MEDS ORDERED: MIDAZOLAM 2 MG/2 ML VIAL ONE (12:26)
[2017-11-22 13:03] LABS: IgG - CSF 11.5 mg/dL (0.0 - 3.4); IgG Synthesis Rate 10.66 mg/day (0.00 - 3.00); IgG/Albumin Index (CSF) 0.57 (0.00 - 0.77); Immunoglobulin G 854 mg/dL (700 - 1600)
[2017-11-22 13:33] LABS: Glucose,Whole Blood 156 mg/dL (75-99)
[2017-11-22] MEDS: CLOPIDOGREL 75 MG TAB PO SCH (14:33)
[2017-11-22] MEDS: MAGNESIUM HYDROXIDE 2,400 MG/10 ML CUP PO PRN (14:34)
--- NOTE | 2017-11-22 14:53 | P.CNOR ---
History of Present Illness - [facility] Consult date: 11/22/17 Consult reason: joint pain History of present illness: Patient is a 67-year-old female who was admitted to [facility] on 2017 with regards to left-sided weakness. Patient has been in and out of both hospitals and program with regards to similar symptoms. I personally evaluated the patient back in September 2017, she had a history of frequent falls and left knee pain. She is a history of a right total knee arthroplasty and revision right total knee arthroplasty by Dr. Parker. We have not seen the patient in the outpatient setting since 2011. Patient had developed significant adhesions, and her range of motion is very limited on the right knee. She has a known history of left knee osteoarthritis, I recommended conservative management, including icing and elevating along with anti-inflammatories and Tylenol. Also discussed the possibility of evaluation the outpatient setting for possible steroid injection. Since the hospital admission, there has been a neurological workup for possible stroke versus MS. There also is talk of a possible second opinion, patient may be transferred to a different facility. At bedside today it was very hard to obtain history from the patient regarding her left knee. She states that she's had a fall since . She cannot remember her most recent fall. She states the knee has given out. She notes pain more along the medial aspect. She denies any acute pain involving the right lower extremity, bilateral upper extremities. She denies any pain left hip, foot or ankle. Most of knee pain is caused when walking. 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 History of Any Multi-Drug Resistant Organisms: None Reported Past Surgical History: Bladder Surgery, Cholecystectomy, Hysterectomy, Joint Replacement, Orthopedic Surgery, Tubal Ligation Additional Past Surgical History / Comment(s): R knee arthroscopy, R knee manipulation, total right knee replacement x 2, bilateral carpal tunnel releases , colonoscopy, bladder suspension, I&D R lower abdomin abscess. Past Anesthesia/Blood Transfusion Reactions: No Reported Reaction Past Psychological History: No Psychological Hx Reported Additional Psychological History / Comment(s): Patient admitted from [facility], currently there receiving physical therapy. Smoking Status: Never smoker Past Alcohol Use History: None Reported Past Drug Use History: None Reported - Past Family History Mother Family Medical History: No Reported History Father Family Medical History: Cancer, Diabetes Mellitus Additional Family Medical History / Comment(s): Father had thyroid cancer. Medications and Allergies Home Medications Medication Instructions Recorded Confirmed Type Atorvastatin [Lipitor] 20 mg PO HS 10/14/17 11/20/17 History Lisinopril [Zestril] 2.5 mg PO HS 10/14/17 11/20/17 History Dulaglutide [Trulicity] 1.5 mg SQ WE 10/15/17 11/20/17 History Insulin Degludec [Tresiba 40 unit SQ HS 10/15/17 11/20/17 History Flextouch U-200] Acetaminophen Tab [Tylenol Tab] 650 mg PO Q4H PRN 11/20/17 11/20/17 History Aspirin [Children's Aspirin] 81 mg PO DAILY@1700 11/20/17 11/20/17 History Bisacodyl [Dulcolax] 10 mg RECTAL DAILY PRN 11/20/17 11/20/17 History Cholecalciferol [Vitamin D3] 3,000 unit PO DAILY 11/20/17 11/20/17 History Docusate [Colace] 100 mg PO DAILY 11/20/17 11/20/17 History INSULIN LISPRO (HumaLOG) [HumaLOG] 5 unit SQ AC-TID 11/20/17 11/20/17 History INSULIN LISPRO (HumaLOG) [HumaLOG] See Protocol SQ ACHS 11/20/17 11/20/17 History Magnesium Hydroxide [Milk of 2,400 mg PO DAILY PRN 11/20/17 11/20/17 History Magnesia] Na Phos,M-B/Na Phos,Di-Ba [Fleet 1 dose RECTAL DAILY PRN 11/20/17 11/20/17 History Adult] Pantoprazole [Protonix] 40 mg PO DAILY 11/20/17 11/20/17 History metFORMIN HCL [Glucophage] 500 mg PO QID 11/20/17 11/20/17 History oxyCODONE-APAP 5-325MG [Percocet 1 tab PO Q4HR PRN 11/20/17 11/20/17 History 5-325 mg] predniSONE 40 mg PO DAILY 11/20/17 11/20/17 History Allergies Allergy/AdvReac Type Severity Reaction Status Date / Time hydromorphone [From Dilaudid] Allergy Confusion Verified 11/20/17 14:08 Penicillins Allergy Nausea & Verified 11/20/17 14:08 Vomiting Physical Examination Left lower extremity: No obvious effusion or areas of ecchymosis, no open lesions Patient does have air boots on along with compression and SCDs Logroll maneuver the leg reproduces no groin pain, internal and external rotation of the hip when flexed to 90 reproduces no pain There is tenderness with palpation along the medial joint line and lateral joint line. Range of motion of the patella reproduces some discomfort. I'm unable to appreciate any effusion, there is no increase in warmth in the skin. Dorsal pedis pulses 2+. Results - Labs Labs: Abnormal Lab Results - Last 24 Hours (Table) 11/20/17 11/21/17 11/21/17 Range/Units 13:30 16:24 16:40 POC Glucose (mg/dL) 61 L 63 L (75-99) mg/dL CSF Albumin 66.2 H (0.0 - 35.0) mg/dL CSF IgG (MS) 11.5 H (0.0 - 3.4) mg/dL Serum Albumin 2,810 L (3500 - 5200) mg/dL CSF IgG Synth Rate MS 10.66 H (0.00 - 3.00) mg/day 11/21/17 11/21/17 11/22/17 Range/Units 17:10 21:10 08:38 POC Glucose (mg/dL) 103 H 101 H 108 H (75-99) mg/dL CSF Albumin (0.0 - 35.0) mg/dL CSF IgG (MS) (0.0 - 3.4) mg/dL Serum Albumin (3500 - 5200) mg/dL CSF IgG Synth Rate MS (0.00 - 3.00) mg/day 11/22/17 11/22/17 Range/Units 11:21 13:28 POC Glucose (mg/dL) 162 H 156 H (75-99) mg/dL CSF Albumin (0.0 - 35.0) mg/dL CSF IgG (MS) (0.0 - 3.4) mg/dL Serum Albumin (3500 - 5200) mg/dL CSF IgG Synth Rate MS (0.00 - 3.00) mg/day H & H 11/20/17 Range/Units 13:30 Hgb 13.5 (11.4-16.0) gm/dL Hct 40.1 (34.0-46.0) % Coagulation 11/20/17 Range/Units 13:30 INR 1.0 (<1.2) Result Diagrams: 11/20/17 13:30 11/20/17 13:30 Assessment and Plan Plan: Imaging: I was able to review her past images, they demonstrate severe medial joint arthritis. I did order new AP and lateral view of the left knee today to compare. Assessment: Left knee pain Severe left knee medial joint as arthritis History of frequent falls Neurological disorder Other medical comorbidities Plan: I was able to discuss the case, including the physical exam findings with Dr. Roman. We will await x-ray results. I believe this is likely another exacerbation of her left knee osteoarthritis along with neurological disorder. Recommend conservative management this time, including icing and elevating along with oral pain medication or anti-inflammatories Medical recommendations with regards to other medical comorbidities No orthopedic surgical intervention needed at this time We will be available for any further questions regarding this patient Time with Patient: Less than 30
--- NOTE | 2017-11-22 15:31 | XR ---
Left knee Limited HISTORY: Trauma and pain 2 views of the left knee, correlation to prior exam 10/06/2017 Joint space loss is most significant in the medial compartment. Alignment and bone mineralization are stable. Suspect some loose bodies in the intercondylar region as on previous exam. Marginal spurring present especially at the patellofemoral joint suspect small joint effusion. Difficult to exclude sm all effusion. IMPRESSION: Osteoarthritis. Consider synovial osteochondromatosis, possible loose bodies, knee MRI or CT could be of benefit.
--- NOTE | 2017-11-22 16:15 | US ---
EXAMINATION TYPE: US venous doppler duplex LE LT DATE OF EXAM: 11/22/2017 3:57 PM COMPARISON: None CLINICAL HISTORY: 67-year-old female lower leg pain. SIDE PERFORMED: Left TECHNIQUE: The lower extremity deep venous system is examined utilizing real time linear array sonog romaine with graded compression, doppler sonography and color-flow sonography. FINDINGS: Md Psychiatry notes: Difficulty exam due to patient body habitus VESSELS IMAGED: External Iliac Vein (EIV) Common Femoral Vein Deep Femoral Vein Greater Saphenous Vein * Femoral Vein Popliteal Vein Small Saphenous Vein * Proximal Calf Veins (* superficial vessels) Left Leg: Appears negative for DVT IMPRESSION: No evidence for DVT within the left lower extremity imaged from the groin to the upper calf.
[2017-11-22 16:22] LABS: Glucose,Whole Blood 166 mg/dL (75-99)
[2017-11-22] MEDS: BISACODYL 10 MG SUPP RECTAL PRN (19:00)
[2017-11-22 20:56] LABS: Glucose,Whole Blood 156 mg/dL (75-99)
[2017-11-22] MEDS: ATORVASTATIN 20 MG TAB PO SCH (21:53)
[2017-11-22] MEDS: INSULIN DETEMIR 100 UNIT/ML 10 ML VIAL SQ SCH (21:54)
[2017-11-22] MEDS: LISINOPRIL 2.5 MG TAB PO SCH (21:54)
--- NOTE | 2017-11-22 22:36 | PN ---
PROGRESS NOTE DATE OF SERVICE: 11/22/2017. PRESENTING COMPLAINT: Weakness on the left side. INTERVAL HISTORY: This patient has a demyelinating disorder. Suspicion for MS is there. The patient's further studies have shown the patient to have a stroke. The patient did also have a lumbar puncture. Patient is supposed to have a BROOK[place] today, but because patient cannot lay on one side, Cardiology was unable to do the same. Also the patient's vision in the left eye is affected. REVIEW OF SYSTEMS: Done for constitutional, cardiovascular, GI, pulmonary; relevant findings as above. The patient also complained increasing pain in the left knee for which orthopedic consultation was done. CURRENT MEDICATIONS: Reviewed. EXAMINATION: Temperature 98, pulse 68, respiratory rate 18, blood pressure 130/68, pulse ox 98% on room air. GENERAL APPEARANCE: Lying in bed, awake. Patient was eating. EYES: Pupils equal. Conjunctivae normal. HEENT: External appearance of nose and ears normal. Oral cavity normal. NECK: JVD unable to assess. Mass not palpable. Respiratory effort normal. LUNGS: Diminished breath sounds. CARDIOVASCULAR: 1st and 2nd sounds normal. No edema. ABDOMEN: Soft, nontender. Liver and spleen not palpable. NEUROLOGICAL: Decreased vision in the left eye. Speech still remains slow. Power in the left leg is 2 to 3/5 and left arm is 3/5. INVESTIGATIONS: Accu-Cheks are noted. ASSESSMENT: 1. 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 2. Underlying demyelinating disorder with extensive white matter changes, multiple sclerosis is the prime differential. Lumbar puncture has been done. 3. Obesity; BMI 39.3. 4. Severe medical debility. Patient is bedbound. 5. Diabetes mellitus type 2 on oral hypoglycemic, uncontrolled with hypoglycemia. 6. Essential hypertension. 7. Hyperlipidemia. 8. Primary osteoarthritis with a flare up of the left knee. 9. Peripheral neuropathy. 10.Chronic urinary stress incontinence. PLAN: One of the patient's daughter was at the bedside. She was concerned about a DVT, hence I did order ultrasound of the left leg that did come back to be negative. Also put in an orthopedic consult because of severe knee pain. They have recommended conservative management. I did also speak to Neurology at length, from their standpoint nothing further to be done right now except for rehab. The patient's daughter did wish the patient to be transferred to [facility]. Hence, I contacted Rachel, the correctional case records supervisor, who did put a call through to [facility]. The patient is supposed to see Dr. Estevan Bradley there. At the present time, no further intervention is required. Speech therapy also visited the patient. Total time spent today was about 40 to 45 minutes with over 25 to 30 minutes of discussion. ROGELIO / JOLIE: [id number] /
[2017-11-23] LABS: Glucose,Whole Blood 184 mg/dL (75-99)
[2017-11-23 06:14] LABS: Glucose,Whole Blood 146 mg/dL (75-99)
[2017-11-23] MEDS: INSULIN ASPART 100 UNIT/ML 1 ML 10 ML VIAL SQ SCH ×6 (07:10→16:55)
[2017-11-23] MEDS: CHOLECALCIFEROL 1,000 UNIT TAB PO SCH (08:46)
[2017-11-23] MEDS: ARTIFICIAL TEARS-HYPROMELLOSE DROPS 15 ML BTL BOTH EYES SCH ×4 (08:47→21:53)
[2017-11-23] MEDS: PANTOPRAZOLE 40 MG TABLET PO SCH (08:47)
[2017-11-23] MEDS: CLOPIDOGREL 75 MG TAB PO SCH (08:47)
--- NOTE | 2017-11-23 09:37 | P.PN ---
Subjective Progress Note Date: 11/23/17 Principal diagnosis: Stroke This is a pleasant 67-year-old female patient with a past medical history significant for diabetes and hypertension who was admitted to the hospital with a stroke causing the patient to have left sided weakness, aphasia , and facial drop. The patient was seen and evaluated by the neurology service. We get involved in her care to rule out any cardiac source of embolization. Initially the patient was scheduled to undergo a BR[place] I Dr. Raymond yesterday but for some reason the BROOK[place]N was not performed. The patient indicated having a TTE with bubble study which I will follow-up on. No indication of any chest pain or chest discomfort or shortness of breath. But clearly the patient seems to be aphasic. The blood pressure has been marginally low and its in the 80s and 90s and I am going to DC lisinopril. Objective - Vital Signs Vital signs: Vital Signs Temp 97.5 F L 11/23/17 08:00 Pulse 94 11/23/17 08:00 Resp 18 11/23/17 08:00 BP 96/51 11/23/17 08:00 Pulse Ox 97 11/23/17 08:00 Intake & Output 11/22/17 11/23/17 11/23/17 18:59 06:59 18:59 Intake Total 240 Balance 240 Weight 77.5 kg Intake: Oral 240 Other: Voiding Method Incontinent Bedpan Bedpan Diaper Diaper Incontinent Incontinent # Voids 1 1 # Bowel Movements 2 - Constitutional General appearance: Present: no acute distress - Respiratory Respiratory: bilateral: CTA - Cardiovascular Rhythm: regular Heart sounds: normal: S1, S2 - Labs CBC & Chem 7: 11/20/17 13:30 11/20/17 13:30 Labs: Abnormal Lab Results - Last 24 Hours (Table) 11/20/17 11/22/17 11/22/17 Range/Units 13:30 11:21 13:28 POC Glucose (mg/dL) 162 H 156 H (75-99) mg/dL CSF Albumin 66.2 H (0.0 - 35.0) mg/dL CSF IgG (MS) 11.5 H (0.0 - 3.4) mg/dL Serum Albumin 2,810 L (3500 - 5200) mg/dL CSF IgG Synth Rate MS 10.66 H (0.00 - 3.00) mg/day 11/22/17 11/22/17 11/22/17 Range/Units 16:20 20:54 23:48 POC Glucose (mg/dL) 166 H 156 H 184 H (75-99) mg/dL CSF Albumin (0.0 - 35.0) mg/dL CSF IgG (MS) (0.0 - 3.4) mg/dL Serum Albumin (3500 - 5200) mg/dL CSF IgG Synth Rate MS (0.00 - 3.00) mg/day 11/23/17 Range/Units 06:08 POC Glucose (mg/dL) 146 H (75-99) mg/dL CSF Albumin (0.0 - 35.0) mg/dL CSF IgG (MS) (0.0 - 3.4) mg/dL Serum Albumin (3500 - 5200) mg/dL CSF IgG Synth Rate MS (0.00 - 3.00) mg/day Assessment and Plan Assessment: Assessment #1 CVA causing left-sided weakness and facial drop and aphasia #2 hypotension #3 diabetes Plan #1 continue antiplatelet therapy #2 DC lisinopril #3 follow-up on the transthoracic echocardiogram was bottle study.
[2017-11-23 11:18] LABS: Glucose,Whole Blood 307 mg/dL (75-99)
[2017-11-23 16:41] LABS: Glucose,Whole Blood 181 mg/dL (75-99)
[2017-11-23] MEDS: oxyCODONE-APAP 5-325MG 1 EACH TAB PO PRN ×2 (16:54→21:52)
[2017-11-23] MEDS: BISACODYL 10 MG SUPP RECTAL PRN (17:41)
[2017-11-23 21:07] LABS: Glucose,Whole Blood 153 mg/dL (75-99)
--- NOTE | 2017-11-23 21:19 | DS ---
DISCHARGE SUMMARY DATE OF ADMISSION: November 20, 2017. DATE OF DISCHARGE: November 23, 2017. FINAL DIAGNOSES: 1. Acute stroke in the right middle cerebral artery with left hemiparesis. 2. Acute dysarthria from stroke. 3. Underlying demyelinating disorder, chronic with extensive white matter changes, multiple sclerosis is in the prime differential. 4. Obesity; BMI 39.3. 5. Severe medical debility. Patient is bed-bound. 6. Diabetes mellitus type 2 on oral hypoglycemic, uncontrolled with hyperglycemia. 7. Essential hypertension. 8. Hyperlipidemia. 9. Primary osteoarthritis with flare up of left knee pain. 10.Peripheral neuropathy. 11.Chronic urinary stress incontinence. HOSPITAL COURSE: This is a pleasant 67-year-old patient was transferred here from the [facility]. The patient has had some fluctuating speech symptoms and left-sided weakness, yet again had more weakness on the left side. Speech was affected. The patient had a MRI of the brain that did show evidence of stroke in the right middle cerebral artery area. The patient also had a lumbar puncture done. Clinical picture is right now looking towards multiple sclerosis. Dr. Contreras has been following the patient as an outpatient. The patient is able to tolerate her diet. Weakness on the left side is 2/5. Speech is a bit slow. BR[place] was attempted by Dr. Polk, could not be done and the surface 2D echocardiogram was done with a bubble study that was negative. This is a verbal report. DVT was ruled out from the left leg. The patient is seen by Dr. Roman from Orthopedics. Hot cool compress on the left knee. PHYSICAL EXAMINATION: On examination power on the left side is 2/5. Speech is slow. I did try to call the daughter today got a voicemail. Yesterday per family request, the patient family request was to go to [facility], but they declined the transfer. Patient has an appointment for a neurologist there. CT angio was unremarkable. The patient also seen by Dr. Justino Patrick from Ophthalmology. CONSULTATION: Dr. Patrick from Ophthalmology, Dr. Contreras from Neurology, Dr. Theresa Polk from Cardiology and Dr. Roman from Orthopedics. DISCHARGE MEDICATIONS: 1. Artificial Tears 1 drop both eyes q.i.d. 2. Lipitor 20 mg at bedtime. 3. Dulcolax 10 mg rectal daily p.r.n. 4. Tums 1000 mg q.4 p.r.n. 5. Vitamin D3 3000 units p.o. daily. 6. Plavix 75 mg daily. 7. NovoLog 5 units a.c. t.i.d. 8. Levemir 24 units subcu q.h.s. 9. Melatonin 3 mg q.h.s. p.r.n. 10.[place] 5 q.4h p.r.n. for pain. 11.Protonix 40 mg a day. Aspiration precautions. All meals supervised. DISPOSITION: [facility]. Follow up with Dr. Chew at [facility], follow up with Dr. Contreras in 7-10 days. Discharge care discussed with cyanide case hardener and also 2D echo results discussed with Dr. Andino from Cardiology. Discharge planning more than [address] Chew. ADDITIONAL NOTE: The patient's family has requested switching the family doctor from Dr. Baer to Dr. Chew. MMODL / LUIS ANTONION: [id number] /
[2017-11-23] MEDS: INSULIN DETEMIR 100 UNIT/ML 10 ML VIAL SQ SCH (21:53)
[2017-11-23] MEDS: ATORVASTATIN 20 MG TAB PO SCH (21:53)
[2017-11-24 05:24] VITALS: RESP 18
[2017-11-24 05:51] LABS: Glucose,Whole Blood 169 mg/dL (75-99)
[2017-11-24] MEDS: INSULIN ASPART 100 UNIT/ML 1 ML 10 ML VIAL SQ SCH ×4 (06:55→12:30)
[2017-11-24] MEDS: CLOPIDOGREL 75 MG TAB PO SCH (08:00)
[2017-11-24] MEDS: CHOLECALCIFEROL 1,000 UNIT TAB PO SCH (08:00)
[2017-11-24] MEDS: ARTIFICIAL TEARS-HYPROMELLOSE DROPS 15 ML BTL BOTH EYES SCH ×2 (08:00→12:30)
[2017-11-24] MEDS: PANTOPRAZOLE 40 MG TABLET PO SCH (08:00)
[2017-11-24 08:13] VITALS: BP 107/55; PULSE 97; TEMP 97.8
[2017-11-24] MEDS ORDERED: ISOSORBIDE MONONITRATE ER 15 MG TAB PO SCH (09:00)
[2017-11-24] MEDS: oxyCODONE-APAP 5-325MG 1 EACH TAB PO PRN (09:25)
--- NOTE | 2017-11-24 10:13 | P.PN ---
Subjective Progress Note Date: 11/24/17 Principal diagnosis: Stroke This is a pleasant 67-year-old female patient with a past medical history significant for diabetes and hypertension who was admitted to the hospital with a stroke causing the patient to have left sided weakness, aphasia , and facial drop. The patient was seen and evaluated by the neurology service. We get involved in her care to rule out any cardiac source of embolization. The patient underwent transthoracic echocardiogram with bubble study and that was reviewed by Dr. Polk who did not see any evidence of crossing across interatrial septum. No indication of any chest pain or chest discomfort or shortness of breath. But clearly the patient seems to be aphasic. The blood pressure was marginally low yesterday and I did stop the lisinopril and it seems that the pressure is better today. Objective - Vital Signs Vital signs: Vital Signs Temp 97.8 F 11/24/17 08:00 Pulse 97 11/24/17 08:00 Resp 18 11/24/17 08:00 BP 107/55 11/24/17 08:00 Pulse Ox 96 11/24/17 08:11 Intake & Output 11/23/17 11/24/17 11/24/17 18:59 06:59 18:59 Intake Total 590 120 Balance 590 120 Weight 78.5 kg Intake: Oral 590 120 Other: Voiding Method Bedpan Bedpan Bedpan Diaper Diaper Diaper Incontinent Incontinent Incontinent # Voids 2 - Constitutional General appearance: Present: no acute distress - Respiratory Respiratory: bilateral: CTA - Cardiovascular Rhythm: regular Heart sounds: normal: S1, S2 - Labs CBC & Chem 7: 11/20/17 13:30 11/20/17 13:30 Labs: Abnormal Lab Results - Last 24 Hours (Table) 11/23/17 11/23/17 11/23/17 Range/Units 11:14 16:35 21:06 POC Glucose (mg/dL) 307 H 181 H 153 H (75-99) mg/dL 11/24/17 Range/Units 05:49 POC Glucose (mg/dL) 169 H (75-99) mg/dL Assessment and Plan Assessment: Assessment #1 CVA causing left-sided weakness and facial drop and aphasia #2 hypotension #3 diabetes Plan #1 continue antiplatelet therapy #2 follow-up with the patient
[2017-11-24 12:24] LABS: Glucose,Whole Blood 169 mg/dL (75-99)
--- NOTE | 2017-11-24 20:26 | DS ---
DISCHARGE SUMMARY ADDENDUM: DATE OF ADMISSION: 11/20/17. DATE OF DISCHARGE: 11/23/17. List clarification of discharge medications 1. Trulicity 1.5 mg subcu on Saturday. 2. Tylenol 650 mg q.4 p.r.n. 3. Dulcolax 10 mg rectal daily p.r.n. 4. Vitamin D3 3000 units p.o. daily. 5. Humalog 5 units subcu a.c. t.i.d. 6. Accu-Cheks q.a.c. and at bedtime, and scale. 7. Milk of Magnesia 2500 mg daily p.r.n. 8. Adult Fleet p.r.n. 9. Protonix 40 mg a day. 10.Artificial Tears 1 drop both eyes q.i.d. 11.Lipitor 40 mg q.h.s. 12.Plavix 75 mg p.o. daily. 13.Tarceva Flex Touch 200 20 units subcu q.h.s. 14.Melatonin 3 mg p.o. q.h.s. 15.Glucophage 500 mg p.o. b.i.d. 16.Percocet 5 one tablet q.4h p.r.n. DISPOSITION: [facility] follow up with Dr. Chew. DISCONTINUED MEDICATIONS: Include Zestril 2.5 mg at bedtime, Lipitor 20 mg q.h.s., prednisone 40 mg, Colace 100 mg, aspirin 81 mg. These medications were discontinued. MMODL / IJN: [id number] /
--- NOTE | 2017-11-25 18:20 | ECHOF ---
Referral Reason:cva MEASUREMENTS -------- HEIGHT: 160.0 cm WEIGHT: 75.3 kg BP: FINDINGS -------- Sinus rhythm. Limited Study for assessment of patent foramen ovale. The left ventricular size is normal. Overall left ventricular systolic function is normal with, an EF between 55 - 60 %. Contrast study was performed with 1 iv injection of 8 ccs of agitated normal saline at rest. No shunt visualized via agitated saline study. CONCLUSIONS -------- 1. Sinus rhythm. 2. Limited Study for assessment of patent foramen ovale. 3. The left ventricular size is normal. 4. Overall left ventricular systolic function is normal with, an EF between 55 - 60 %. 5. Contrast study was performed with 1 iv injection of 8 ccs of agitated normal saline at rest. 6. No shunt visualized via agitated saline study. COUNTY ATTORNEY: Christian Nguyen RDCS
== END 2017-11-24 16:18 | DRG 65 ==
LOC: EC 12:50 → 6SEL 16:02 → INTOOBSV 16:02 → OBSVTOIN 11-22 15:13
PROVIDERS: ADMIT Hospitalist; ATTEND Hospitalist
PROC: 009U3ZX Drainage of Spinal Canal, Percutaneous Approach, Diagnostic (ICD-10-PCS; principal; 2017-11-21)
DX: I63.511 Cerebral infarction due to unspecified occlusion or stenosis of right middle cerebral artery (principal); G81.94 Hemiplegia, unspecified affecting left nondominant side; R29.711 NIHSS score 11; R47.1 Dysarthria and anarthria; E11.42 Type 2 diabetes mellitus with diabetic polyneuropathy; E11.65 Type 2 diabetes mellitus with hyperglycemia; E66.9 Obesity, unspecified; E78.5 Hyperlipidemia, unspecified; F41.9 Anxiety disorder, unspecified; G35 Multiple sclerosis; H54.62 Unqualified visual loss, left eye, normal vision right eye; I10 Essential (primary) hypertension; I70.293 Other atherosclerosis of native arteries of extremities, bilateral legs; M17.12 Unilateral primary osteoarthritis, left knee; N39.3 Stress incontinence (female) (male); R47.01 Aphasia; W19.XXXA Unspecified fall, initial encounter; Z68.39 Body mass index [BMI] 39.0-39.9, adult; Z74.01 Bed confinement status; Z79.02 Long term (current) use of antithrombotics/antiplatelets; Z79.4 Long term (current) use of insulin; Z79.82 Long term (current) use of aspirin; Z79.899 Other long term (current) drug therapy; Z80.8 Family history of malignant neoplasm of other organs or systems; Z83.3 Family history of diabetes mellitus; Z90.710 Acquired absence of both cervix and uterus; Z91.81 History of falling; Z98.42 Cataract extraction status, left eye; Z98.41 Cataract extraction status, right eye; Z96.1 Presence of intraocular lens; Z96.651 Presence of right artificial knee joint; Z79.52 Long term (current) use of systemic steroids; Z88.5 Allergy status to narcotic agent; Z88.0 Allergy status to penicillin; Z90.49 Acquired absence of other specified parts of digestive tract
CPT/HCPCS: 36415; 62270; 70030; 70450; 70496; 70498; 70544; 70551; 70552; 71046; 80053; 82040; 82042; 82550; 82553; 82784; 83916; 84484; 85025; 85610; 85730; 93005; 93308; 94760; 96360; 99285

== ENCOUNTER → 2017-12-03 | Outpatient (CLI) | payer MEDICARE, OTHER ==
--- NOTE | 2017-12-03 08:03 | MR ---
EXAMINATION TYPE: MR lumbar spine wo con DATE OF EXAM: 12/03/2017 COMPARISON: None HISTORY: Low back pain TECHNIQUE: Multiplanar, multisequence images of the lumbar spine were acquired. FINDINGS: The lumbar vertebral bodies maintain normal vertebral body heights and alignment. Multileve l disc desiccation is seen. Conus medullaris is unremarkable terminating at L1. There is some motion artifact through the kidneys, limiting evaluation. However there is a questioned 7 mm lateral cortica l left renal lesion that is T1 hypointense and T2 hypointense on axial T1 nonfat sat image 23 and T2 image 22. There is mild generalized atrophy of the paraspinal muscles most pronounced within the lowe r lumbosacral spine. Small broad-based disc bulges partially visualized at T10-T11 on the sagittal images only. L1-L2: Normal disc appearance without desiccation. No herniation, protrusion or disc bulging. No ca nal stenosis is present. Foramina are patent bilaterally. L2-L3: There is a left eccentric disc bulge with small annular tear creating mild left neural foramin al narrowing in combination with mild facet arthropathy. No right neural foraminal narrowing or spina l canal stenosis. L3-L4: There is flattening in the usual disc concavity posteriorly relating to a small broad-based di sc bulge creating very mild bilateral neural foraminal narrowing. No spinal canal stenosis. Facet art hropathy is also seen at this level. L4-L5: Broad-based disc bulge and facet arthropathy are seen creating very mild bilateral neural fora shar narrowing. No spinal canal stenosis. L5-S1: There is minimal disc desiccation and a small broad-based disc bulge without spinal canal sten osis or neural foraminal narrowing. IMPRESSION: 1. No evidence of focal disc herniation or spinal canal stenosis. 2. Mild multilevel degenerative disc disease resulting in multiple levels of mild neural foraminal na rrowing as described above. Small annular tear seen at L2-L3. 3. No evidence of vertebral body height loss or malalignment of the lumbar spine. 4. Questionable left midpole lateral cortical renal lesion versus motion artifact. Renal ultrasound c ould be performed if there is further clinical concern.
== END | disposition home or self-care (01) ==
LOC: RADMRIMAIN 06:32
PROVIDERS: ATTEND Psychiatry & Neurology Neurology
DX: M99.73 Connective tissue and disc stenosis of intervertebral foramina of lumbar region (principal); M51.36 Other intervertebral disc degeneration, lumbar region; Z88.0 Allergy status to penicillin; Z88.6 Allergy status to analgesic agent
CPT/HCPCS: 72148

== ENCOUNTER → 2017-12-16 | Outpatient (CLI) | payer MEDICARE, OTHER ==
--- NOTE | 2017-12-17 09:31 | CT ---
EXAMINATION TYPE: CT abdomen pelvis w con DATE OF EXAM: 12/16/2017 HISTORY: Left kidney lesion. Recent abnormal MRI. CT DLP: 2060.1mGycm Automated Exposure Control for Dose Reduction was Utilized. CONTRAST: CT scan of the abdomen and pelvis is performed with IV Contrast, patient injected with 100ml mL of Is ovue M300. COMPARISON: MRI lumbar spine December 03, 2017. FINDINGS: LUNG BASES: Respiratory motion artifact degradation is present. Cardiomegaly is seen. Coronary artery calcification is identified which is noted marker for underlying coronary artery disease. LIVER/GB: Cholecystectomy clips are seen. PANCREAS: No significant abnormality is seen. SPLEEN: Spleen is mildly enlarged in size at 13.8 cm long axis coronal image 66. ADRENALS: No significant abnormality is seen. KIDNEYS: There is symmetric cortical medullary uptake and excretion from both kidneys without evidenc e of hydronephrosis seen bilaterally. There is slightly lobulated contour to the left kidney. There i s no suspicious solid or cystic renal mass identified in either kidney and no corresponding abnormali ty to correlate with the 7 mm T2 hypointense lesion on recent MRI. BOWEL: The oral contrast only reaches mid small bowel loops making evaluation bowel slightly subopti mal. There is no suspicious small or large bowel dilatation. A few scattered pelvic phleboliths are s een. Normal-appearing appendix is seen from base of cecum. UTERUS/ADNEXA: Uterus is surgically absent LYMPH NODES: No greater than 1cm abdominal or pelvic lymph nodes are appreciated. OSSEOUS STRUCTURES: Moderate to severe multilevel spurring in the visualized thoracic spine is presen t. Some uncovertebral facet arthropathy lower lumbar spine is present. OTHER: Mild calcified plaque abdominal aorta extends into branch vessels. IMPRESSION: 1. No worrisome solid or cystic renal mass in either kidney.
== END | disposition home or self-care (01) ==
LOC: RADCTMAIN 17:17
PROVIDERS: ATTEND Family Medicine
DX: Z09 Encounter for follow-up examination after completed treatment for conditions other than malignant neoplasm (principal); Z86.018 Personal history of other benign neoplasm
CPT/HCPCS: 74177; Q9967

== ENCOUNTER 2017-12-26 05:47 | Day surgery (SDC) | payer MEDICARE, OTHER ==
[2017-12-24 11:16] VITALS: BMI 38.7
[2017-12-26] MEDS ORDERED: LACTATED RINGERS 1,000 ML IV SCH (06:45)
[2017-12-26] MEDS ORDERED: LIDOCAINE 1% 20 ML VIAL (10MG/ML) FOR IV START INTRADERMA ONE (07:15)
[2017-12-26 07:25] VITALS: TEMP 98.2
--- NOTE | 2017-12-26 07:48 | P.PCN ---
Date of Procedure: 12/26/17 Description of Procedure: Procedure: Lumbar Puncture . Preoperative Diagnoses: Lymphoma Postoperative Diagnosis: Lymphoma Anesthesia: IV sedation with Versed and local Condition: stable. Complications: none. Anesthesia: Local anesthetic, conscious sedation with 2 mg IV Versed Description of the procedure: Patient in the preoperative holding in the lateral position and monitors applied , the back prepped with chlorhexidine x 3, sterile technique, with sterile gloves, mask and surgical cap. Local infiltration of the skin with lidocaine 1 % 2 mL, then 22-gauge quickie Needle advanced slowly paramedian at L4-5 interlaminar space, the cerebrospinal fluid was clear, and no heme no paresthesia, a total of 12 mL of clear cerebrospinal fluid collected in 4 different tubes, the needle removed, Band-Aid applied , patient tolerated the procedure well without any complications, and further management as per her neurologist
--- NOTE | 2017-12-26 07:49 | P.GSHP ---
History of Present Illness H&P Date: 12/26/17 67-year-old female presenting for lumbar puncture to rule out lymphoma per her neurologist. Patient had a previous stroke about a month ago with left-sided weakness, no blood thinners for the last 7 days. 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 EXCORIATION TO COCCYX AREA, AND SKIN FOLDS. COMPLETELY WHEELCHAIR/BED BOUND History of Any Multi-Drug Resistant Organisms: None Reported Past Surgical History: Bladder Surgery, Cholecystectomy, Hysterectomy, Joint Replacement, Orthopedic Surgery, Tubal Ligation Additional Past Surgical History / Comment(s): R knee arthroscopy, R knee manipulation, total right knee replacement x 2, bilateral carpal tunnel releases , colonoscopy, bladder suspension, I&D R lower abdomin abscess. LUMBAR PUNCTURE Past Anesthesia/Blood Transfusion Reactions: No Reported Reaction Smoking Status: Never smoker - Past Family History Mother Family Medical History: No Reported History Father Family Medical History: Cancer, Diabetes Mellitus Additional Family Medical History / Comment(s): Father had thyroid cancer. Medications and Allergies Home Medications Medication Instructions Recorded Confirmed Type Dulaglutide [Trulicity] 1.5 mg SQ WE 10/15/17 12/26/17 History Acetaminophen Tab [Tylenol] 650 mg PO Q4H PRN 11/20/17 12/26/17 History Bisacodyl [Dulcolax] 10 mg RECTAL DAILY PRN 11/20/17 12/26/17 History Cholecalciferol [Vitamin D3] 3,000 unit PO DAILY 11/20/17 12/26/17 History INSULIN LISPRO (HumaLOG) [humaLOG] 5 unit SQ AC-TID 11/20/17 12/26/17 History Magnesium Hydroxide [Milk of 2,400 mg PO DAILY PRN 11/20/17 12/26/17 History Magnesia] Na Phos,M-B/Na Phos,Di-Ba [Fleet 1 dose RECTAL DAILY PRN 11/20/17 12/26/17 History Adult] Pantoprazole [Protonix] 40 mg PO DAILY 11/20/17 12/26/17 History Artificial Tears-Hypromellose 1 drops BOTH EYES QID bottle 11/24/17 12/26/17 Rx [Artificial Tear Drops] Atorvastatin [Lipitor] 40 mg PO HS #1 tablet 11/24/17 12/26/17 Rx metFORMIN HCL [Glucophage] 500 mg PO BID #0 11/24/17 12/26/17 Rx oxyCODONE-APAP 5-325MG [Percocet 1 tab PO Q4HR PRN #10 tab 11/24/17 12/26/17 Rx 5-325 mg] Aspirin [Adult Low Dose Aspirin EC] 81 mg PO DAILY 12/24/17 12/26/17 History Insulin Degludec [Tresiba 40 unit SQ HS 12/24/17 12/26/17 History Flextouch U-200] Lisinopril [Zestril] 2.5 mg PO HS 12/24/17 12/26/17 History Allergies Allergy/AdvReac Type Severity Reaction Status Date / Time hydromorphone [From Dilaudid] Allergy Confusion Verified 12/26/17 07:20 Penicillins Allergy Nausea & Verified 12/26/17 07:20 Vomiting Surgical - Exam Vital Signs Temp Pulse Resp BP Pulse Ox 98.2 F 78 18 104/63 97 12/26/17 07:10 12/26/17 07:10 12/26/17 07:10 12/26/17 07:10 12/26/17 07:10 - Respiratory normal expansion, normal respiratory effort - Cardiovascular Rhythm: regular Heart Sounds: normal: S1, S2
[2017-12-26] MEDS ORDERED: IV FLUID CONTINUATION 1,000 ML IV ONE (07:54)
[2017-12-26 08:04] LABS: Glucose,Whole Blood 120 mg/dL (75-99)
[2017-12-26 08:19] VITALS: RESP 16
[2017-12-26 08:24] VITALS: BP 115/74; PULSE 74
== END 2017-12-26 08:32 | disposition home or self-care (01) ==
LOC: ORPAIN 05:47
PROVIDERS: ATTEND Anesthesiology
DX: I69.354 Hemiplegia and hemiparesis following cerebral infarction affecting left non-dominant side (principal); E11.9 Type 2 diabetes mellitus without complications; E78.5 Hyperlipidemia, unspecified; I10 Essential (primary) hypertension; R60.9 Edema, unspecified; M17.12 Unilateral primary osteoarthritis, left knee; L92.0 Granuloma annulare; J30.9 Allergic rhinitis, unspecified; Z99.3 Dependence on wheelchair; Z74.01 Bed confinement status; Z96.651 Presence of right artificial knee joint; Z90.49 Acquired absence of other specified parts of digestive tract; Z90.710 Acquired absence of both cervix and uterus; Z79.82 Long term (current) use of aspirin; Z79.4 Long term (current) use of insulin; Z79.899 Other long term (current) drug therapy; Z88.5 Allergy status to narcotic agent; Z88.0 Allergy status to penicillin; Z98.51 Tubal ligation status
CPT/HCPCS: 88108; 62270; J2250

== ENCOUNTER → 2018-01-01 | Outpatient (CLI) | payer MEDICARE, OTHER ==
--- NOTE | 2018-01-01 10:48 | MR ---
EXAMINATION TYPE: MR brain wo/w con DATE OF EXAM: 01/01/2018 10:09 AM COMPARISON: 11/21/2017 HISTORY: Hodgkin lymphoma CONTRAST: Patient received 10 mL intravenous Gadavist gadolinium contrast. Multiplanar and multispin-echo imaging of the brain was performed . Pre and post contrast enhanced i mages are obtained. The ventricles, basal cisterns and sulci overlying the cerebral convexities are mildly enlarged. There is evidence of mild periventricular white matter ischemic demyelination. There is persistent w kelsey matter change noted within the right spann radiata extending into the centrum semioval bilatera lly as well as involvement of the right midbrain with extension into the kaitlin. Following the administ ration of contrast there is nodular enhancement throughout these areas including the right frontal re gion. Lymphomatous involvement is difficult to exclude. There is also increased signal on diffusion-w eighted imaging within these regions and the findings could be related to vascular insult or embolic process. Remote deep white matter insults are also noted. There is no evidence for midline shift or mass effect. Acute intracranial hemorrhage or extra-axial collection is not evident. No enhancing lesions are seen. The paranasal sinuses and mastoid air cells are well-aerated. IMPRESSION: 1. Nonspecific increased signal on diffusion-weighted imaging with nodular enhancement noted extendin g from the right kaitlin, right midbrain and into the right centrum semioval and spann radiata. The fi ndings could reflect lymphomatous involvement although vascular insult is difficult to exclude. The f indings indicate a change relative to the prior study especially with regards to the degree of enhanc ement.
== END ==
LOC: RADMRIMAIN 09:01
PROVIDERS: ATTEND Family Medicine
DX: C81.90 Hodgkin lymphoma, unspecified, unspecified site (principal)
CPT/HCPCS: 70553; A9581

== ENCOUNTER → 2018-03-21 | Outpatient (CLI) | payer MEDICARE, OTHER ==
--- NOTE | 2018-03-23 13:13 | MR ---
EXAMINATION TYPE: MR brain wo/w con DATE OF EXAM: 03/21/2018 COMPARISON: 01/01/2018 HISTORY: Cerebral infarction, hx of lymphoma, F/U to prior MR 01-01-18 CONTRAST: Performed utilizing 9.5 mL intravenous Gadavist gadolinium contrast. TECHNIQUE: Multiplanar, multiecho imaging on a 3.0 Arabella magnet is performed through the brain. Stud y is performed within 24 hours of arrival to the hospital. The craniovertebral junction is normal. The pituitary is normal. Diffusion-weighted imaging is performed. No abnormal hyperintensity is present to suggest an acute i ntracranial infarct or acute ischemic change. There is right deep white matter hyperintensity on T2 and inversion recovery weighted sequences. This has minimal signal on the diffusion-weighted imaging. Findings are compatible with old ischemic type changes. Radiation treatment could be considered. White matter changes extend into the right cerebra l peduncle likely related to wallerian degeneration. No acute intracranial infarct is evident. Following contrast, abnormal enhancement is not evident. Pr evious nodular enhancement is not evident suggesting findings are more likely related to vascular ins ult. Correlation with treatments in the clinical course could support the differential. Ventricles and sulci are prominent for the patient age. IMPRESSIONS: 1. Old right deep white matter ischemic changes with degenerative change. 2. No acute intracranial process is evident. 3. Atrophy. 4. Previous nodular enhancement is not evident on the current examination.
== END | disposition home or self-care (01) ==
LOC: RADMRIMAIN 17:31
PROVIDERS: ATTEND Psychiatry & Neurology Neurology
DX: G31.9 Degenerative disease of nervous system, unspecified (principal); I25.2 Old myocardial infarction; Z88.0 Allergy status to penicillin; Z88.5 Allergy status to narcotic agent
CPT/HCPCS: 70553; A9585

== ENCOUNTER → 2018-07-14 | Outpatient (CLI) | payer MEDICARE, OTHER ==
--- NOTE | 2018-07-14 11:30 | US ---
EXAMINATION TYPE: US thyroid st tissue head/neck DATE OF EXAM: 07/14/2018 COMPARISON: 04/04/2017 CLINICAL HISTORY: E04.2 nontoxic multinodular goiter. GLAND SIZE: Right Lobe: 5.5 x 2.5 x 1.4 cm Overall Parenchyma: heterogenous Left Lobe: 3.6 x 1.4 x 1.3 cm Overall Parenchyma: homogeneous Isthmus Thickness: 0.4 cm NODULES RIGHT: # of nodules measured on right: 3 1. 0.5X 0.5 x 0.6 cm hypoechoic solid nodule at the mid pole with well-defined margins. This nodule is wider than tall and shows no intranodular vascularity. Prior size: 0.6 x 0.6 x 0.5 cm 2. 0.7 X 0.5 x 0.5 cm hypoechoic solid nodule at the lower pole with well-defined margins. This nod ule is wider than tall and shows . Prior size: 0.6 x 0.6 x 0.5 cm 3. 0.9 X 0.7 x 0.8 cm isoechoic solid nodule at the lower pole with well-defined margins. This nodu le is wider than tall and shows no intranodular vascularity. Prior size: 0.9 x 0.9 x 0.7 cm LEFT: # of nodules measured on left: 0 ISTHMUS: # of nodules measured in the isthmus: 0 Bilateral neck scanned, no evidence of lymphadenopathy. Technically difficult study. Patient scanned in her wheelchair and was only able to lift her head is short increments. IMPRESSION: 1. Subcentimeter nodules right lobe thyroid. 2. Technically difficult examination
== END | disposition home or self-care (01) ==
LOC: RADUSWWP 10:07
PROVIDERS: ATTEND Internal Medicine Endocrinology, Diabetes & Metabolism
DX: E04.1 Nontoxic single thyroid nodule (principal)
CPT/HCPCS: 76536

== ENCOUNTER → 2020-04-06 | Outpatient (CLI) | payer MEDICARE, OTHER ==
--- NOTE | 2020-04-06 14:53 | US ---
EXAMINATION TYPE: US thyroid st tissue head/neck DATE OF EXAM: 04/06/2020 COMPARISON: US CLINICAL HISTORY: E04.2 Nontoxic multinodular goiter. GLAND SIZE: Right Lobe: 4.7 x 1.8 x 2.6 cm Overall Parenchyma: heterogenous Left Lobe: 3.9 x 1.5 x 2.3 cm Overall Parenchyma: heterogeneous Isthmus Thickness: 0.4 cm NODULES RIGHT: # of nodules measured on right: 2 largest of multiple thyroid nodules 1. 0.8 X 0.7 x 0.6 cm hypoechoic mixed nodule at the mid pole with well-defined margins. This nodu le is wider than tall and shows intranodular vascularity. Prior size: 0.5 x 0.6 x 0.5 cm 2. 0.8 X 0.7 x 0.6 cm hypoechoic mixed nodule at the lower pole with poorly defined margins. This n odule is wider than tall and shows no intranodular vascularity. Prior size: 0.7 x 0.5 x 0.5 cm LEFT: # of nodules measured on left: 2 largest of multiple thyroid nodules 1. 0.6 X 0.5 x 0.6 cm hypoechoic mixed nodule at the mid pole with well-defined margins. This nodu le is taller than wide and shows no intranodular vascularity. 2. 0.5 X 0.4 x 0.4 cm hypoechoic cystic nodule at the lower pole with well-defined margins. This no dule is wider as is tall and shows no intranodular vascularity. ISTHMUS: # of nodules measured in the isthmus: 0 Bilateral neck scanned: no evidence of lymphadenopathy. IMPRESSION: Persistent thyroid heterogeneity and stable nonspecific nodularity.
== END | disposition home or self-care (01) ==
LOC: RADUSWWP 14:00
PROVIDERS: ATTEND Internal Medicine Endocrinology, Diabetes & Metabolism
DX: E04.2 Nontoxic multinodular goiter (principal)
CPT/HCPCS: 76536